=== PATIENT | male | born 1950 | race Caucasian/White ===

== ENCOUNTER → 2016-08-01 | Outpatient (CLI) | payer BC ==
[~2016-08-01] MED LIST: ALDACTONE PO; ALDACTONE25 MG PO; AUGMENTIN PO; AUGMENTIN400 MG PO; BABY ASA PO; BETAPACE80 MG PO; DIGOX0.25 MG PO; DOXYCYCLINE HY100 M1 PO; DOXYCYCLINE HY100 M3 PO; ELIQUIS5 MG PO; FLAGYL PO; FUROSEMIDE40 MG PO; HOLTER MONITOR; HYDROCHLOROTH12.5 M1 PO; LANOXIN125 MCG PO; LASIX PO; LASIX20 MG PO; LIDOPRIL XR 2.1 EACH; LISINOPRIL-HCTZ1 T19 PO; LISINOPRIL10 MG PO; LISINOPRIL5 MG PO; LORTAB 10-5001 EACH PO; LORTAB 7.5-5001 TAB PO; MEGACE ORA40 MG/ML S PO; MEGESTROL ACETA40 MG PO; METOPROLOL TAR25 MG PO; METOPROLOL TART25 MG PO; METRONIDAZOLE 045 GM EXT; METRONIDAZOLE 045 GM TOP; NO MEDICATIONS; ONDANSETRON HCL4 M1 PO; PANTOPRAZOLE SO40 MG PO; PERCOCET5/325 PO; PRADAXA150 MG PO; PRINIVIL5 MG PO; PROTONIX PO; SOTALOL AF80 M1 PO; TETRACYCLINE PO; ZOFRAN ODT4 M1 PO
--- NOTE | ~2016-08-01 | MR2 ---
[facility] A Service of [facility] & [facility] RADIOLOGY TEXT RESULTS PATIENT: AMBAR WILSON LOCATION: [facility] : 52 UNIT #: [id number] AGE: [address]: Indra Limon MD SEX: M ORDER DR: [id number] [facility] [address]. [place], [place] [address] [id number] MR#: [id number] Acc #: [id number] NAME: AMBAR WILSON : 1950 SEX: M STUDY DATE/TIME: 08/01/2016 22:06 UNIT: [facility] ROOM: STUDY DESCRIPTION: MR Abdomen WWo Cont Attending Physician: Indra Limon M.D. Ordering Physician: Indra Limon M.D. Primary Care Physician: Edgardo Hodgson M.D. MRI CENTER REPORT This report is preliminary unless electronic signature is present. EXAM MRI abdomen without and with IV gadolinium 08/01/2016 HISTORY Liver cancer since 02/12. Subsequent chemotherapy, currently ongoing. Underlying cirrhosis. MRI for restaging. COMPARISON MRI abdomen with and without contrast 06/13/2016. FINDINGS Again demonstrated are morphologic changes of cirrhosis. Again demonstrated is the ill-defined area of signal abnormality and hyperenhancement in the inferolateral right hepatic lobe in segment 6, best visualized on the delayed postcontrast scans, where it remains relatively hyper enhanced, and measures close to 5.5 cm x 4.6 cm in maximal AP and transverse dimensions. 2 rounded nodular areas of hyperenhancement are again noted in the medial right hepatic lobe in segment 6 measuring 10 mm, and in the inferior right hepatic tip measuring 11 mm. There is evidence of portal venous hypertension with upper abdominal and distal paraesophageal varices, similar to the prior exam. Partly visualized abdominal hernia near the level of the umbilicus with herniated fat measuring at least 12 cm in transverse diameter, extending through a 6 cm defect. Small amount of ascites. 14 mm gallstone. The spleen, pancreas, kidneys, and adrenal glands are unremarkable. Normal caliber abdominal aorta. Mildly enlarged portocaval lymph node measures 1.3 cm, minimally larger than on 06/13/2016 when it measured 11 mm. Lymph node interposed between the pancreatic head and IVC measures 1.4 cm, previously 1.1 cm. IMPRESSION 1. Stable size of the ill-defined irregularly marginated mass centered in the inferior right hepatic lobe in segment 6 which is most STS. [facility] A Service of [facility] & [facility] RADIOLOGY TEXT RESULTS PATIENT: AMBAR WILSON LOCATION: [facility] : 52 UNIT #: [id number] AGE: [address]: Indra Limon MD SEX: M ORDER DR: conspicuous on the delayed postcontrast scans with hyperenhancement noted. There are also 2 stable small enhancing nodules in the inferior right hepatic lobe measuring 10 mm and 11 mm. Given the persistent delayed hyperenhancement, cholangiocarcinoma and metastatic disease should be considered. No new or enlarging hepatic lesion. 2. Slight interval increase in size of mildly enlarged lymph nodes in the portocaval space and interposed between the pancreatic head and IVC as detailed above. 3. No new adenopathy. 4. Cirrhosis with evidence of portal venous hypertension. 5. 1.4 cm gallstone. 6. Partly visualized umbilical or periumbilical hernia containing fat appears similar to the prior exam. Dictated by... Tevin Kenyn M.D. THIS IS AN ELECTRONICALLY VERIFIED REPORT Tevin Kenny M.D. at 08/02/2016 10:58 PM Man TD: 08/02/2016 17:29 JOB #: [id number] MRI CENTER REPORT Page 1 of 1 COPY
[2016-08-01 22:51] LABS: POC - CREATININE 1.04 mg/dL (0.64-1.27); POC - GFR >60.0 mL/min (>60)
== END | disposition home or self-care (01) ==
LOC: CMRI 20:13
PROVIDERS: Internal Medicine Hematology & Oncology
DX: C78.7 Secondary malignant neoplasm of liver and intrahepatic bile duct (principal); K74.69 Other cirrhosis of liver; I42.0 Dilated cardiomyopathy; R53.0 Neoplastic (malignant) related fatigue; R16.0 Hepatomegaly, not elsewhere classified; K76.89 Other specified diseases of liver; R59.0 Localized enlarged lymph nodes; K74.60 Unspecified cirrhosis of liver; K76.6 Portal hypertension; K80.20 Calculus of gallbladder without cholecystitis without obstruction; K42.9 Umbilical hernia without obstruction or gangrene
CPT/HCPCS: 74183; 82565; A9577

== ENCOUNTER 2016-08-10 01:13 | Observation (INO) | payer BC ==
--- NOTE | ~2016-08-10 | HP ---
Unit #: [id number] #: [id number] Patient: AMBAR BARTON [id number] [facility]. [place] [id number] [facility]. [place], [place] [address] [id number] MR#: [id number] NAME: AMBAR BARTON. ROOM: 18951 Age: 66 Sex: M Admission Date: 08/10/2016 : 1950 Attending Physician: Anne Marie Munson M.D. Referring Physician: Edgardo Hodgson M.D. Primary Care Physician: Edgardo Hodgson M.D. HISTORY AND PHYSICAL HISTORY OF PRESENT ILLNESS This is a 66-year-old white male who has known nonischemic cardiomyopathy, had ejection fraction of 10% to 15% on a cardiac cath last November, and then in the office his echo in February showed an LVEF improved to 45%. He has permanent atrial fibrillation and is on Eliquis. He has stage IV liver cancer, is currently in between chemo treatments. He sees Dr. Limon. He is a reformed smoker and alcohol abuse. Patient came into the emergency room with increased weakness, shortness of breath and dizziness. Patient states that he just has been feeling very dizzy and weak. He has not had chemo for a few weeks, but there are plans to do a new round of chemo soon. According to the patient's , she noted the patient looking more short of air with minimal exertion. The patient says he feels occasionally his heart racing but not persistent. He denies any chest pain, pain in his neck, bilateral jaws, shoulders, arms or elbows. He has a little bit of lower extremity edema, but he says it is not unusual. He states he has had no nausea, vomiting or diarrhea. He denies any fever but has occasional chills. No abdominal pain or back pain. In the emergency room the patient's blood pressure was 119/97, heart rate 146 with respirations of 18, O2 sat 100% on room air, temperature 98.5. EKG showed atrial fibrillation with rapid ventricular response. Chest x-ray did not show any acute. His BNP is 161. Creatinine is 1.3. Initial cardiac enzymes are negative. His WBC is 15.1, platelets 95, hemoglobin 9.8. The patient was started on a Cardizem drip after 20 mg of IV Cardizem bolus. He was also given a bolus of normal saline. Patient will be admitted for further management. According to the patient, he admits to not taking his home medications for a couple days. He says sometimes he forgets. He is on Metoprolol and Lanoxin. PAST MEDICAL HISTORY 1. Nonischemic cardiomyopathy. In 11/2015 his LVEF was found to be 10% to 15% per cardiac cath by Dr. Samson here at [facility]. Also, the cardiac cath revealed normal coronaries. 2. Two-D echo performed in the office in 02/2016 showed LVEF of 45%, trace tricuspid regurgitation. 3. Permanent atrial fibrillation, on Eliquis. 4. Chronic systolic congestive heart failure. 5. Stage IV liver cancer. Chemotherapy. Follows Dr. Limon. 6. Diverticulosis and colon resection. Polyps removed. 7. Hypertension. 8. Reformed smoker. Unit #: [id number] #: [id number] Patient: AMBAR BARTON 9. Reformed alcohol abuse. PAST SURGICAL HISTORY 1. Polyps removed. 2. Colon resection. HOME MEDICATIONS 1. Lasix 40 mg p.o. b.i.d. 2. Lanoxin 0.25 mg p.o. daily. 3. Metoprolol 25 mg p.o. b.i.d. 4. Prinivil 5 mg p.o. daily. 5. Doxycycline 100 mg p.o. daily. 6. Pantoprazole 40 mg p.o. daily. 7. Megestrol 40 mg p.o. daily. 8. Aldactone 12.5 mg p.o. daily. 9. Ondansetron 4 mg p.o. q.6 hours p.r.n. nausea and vomiting. 10. Eliquis 5 mg p.o. b.i.d. ALLERGIES No known drug allergies. SOCIAL HISTORY The patient lives with his spouse. The patient is very sedentary due to his liver cancer. He quit smoking a few months back. He quit drinking in November of 2015. Drank several beers daily. No illicit drug abuse. FAMILY HISTORY His mother had coronary artery bypass graft. His father and siblings were in generally good health. REVIEW OF SYSTEMS CONSTITUTIONAL: Denies fevers. Has occasional chill. He has lost 30 pounds in the last 6 months. HEENT: Denies headache. Complained of dizziness. No visual or hearing changes. No lymphadenopathy, thyromegaly. No difficulty swallowing. CARDIOVASCULAR: Denies chest pain. Occasional palpitations. Some slightly increased lower extremity edema. PULMONARY: Increased shortness of breath with exertion. Denies paroxysmal nocturnal dyspnea or orthopnea. GI: Denies nausea, vomiting or diarrhea. NEUROLOGIC: No focal weakness. PHYSICAL EXAMINATION GENERAL: On exam, Mr. Barton is a 66-year-old white male, in no acute respiratory distress. He is awake, alert. NECK: Trachea midline. No thyromegaly or lymphadenopathy. Normal carotid upstrokes. No jugular venous distention. SKIN: Color is slightly jaundiced. EYES: Sclera is slightly jaundiced. HEART: S1, S2, irregular rate and rhythm. No clicks, murmurs or rubs. LUNGS: Slightly diminished; otherwise, clear. ABDOMEN: Slightly distended, soft, nontender. Positive bowel sounds present. EXTREMITIES: Pedal pulses are palpable. Trace pedal edema. DIAGNOSTIC STUDIES LABORATORY DIAGNOSTIC DATA: Glucose is 162, BUN 19, creatinine 1.3, eGFR 57.7, sodium 132, potassium 3.9, chloride 99, CO2 20, calcium 8.5, albumin Unit #: [id number] #: [id number] Patient: AMBAR BARTON 1.9, bili total 5, AST 73, ALT 26, alkaline phosphatase 152. BNP 161. WBC is 15.1, hemoglobin 9.8, hematocrit 30, platelets 95. Initial cardiac enzymes - CK-MB less than 1, troponin less than 0.05. IMAGING: Chest x-ray shows no active disease. CARDIOVASCULAR: EKG shows atrial fibrillation with ventricular rate 146 beats per minute, nonspecific ST-T wave abnormalities in, looks like, anterolateral leads. IMPRESSION 1. Weakness, dizziness. 2. Atrial fibrillation with rapid ventricular response. A fib is chronic. 3. Brief hypotension. 4. Dyspnea with exertion. 5. Nonischemic cardiomyopathy. LVEF 10% to 15% in 11/2015, improved to 45% on two-D echo 02/2016. 6. Normal coronaries per cardiac cath, 11/2015. 7. Chronic systolic congestive heart failure. 8. Stage IV liver cancer. Sees Dr. Limon. Has had chemo. Plans for future chemo. 9. History of hypertension. 10. Reformed smoker. 11. Reformed alcohol abuse. 12. Diverticulosis. PLAN 1. Patient will be admitted for management of A fib with RVR. Patient was started on a Cardizem drip. At rest his heart rate is in the 90s; with some movement, though, his heart rate increases to over 100 beats per minute. 2. Will discontinue the Metoprolol and start the patient on sotalol 40 mg p.o. b.i.d. After the first dose, will discontinue the Cardizem drip. 3. Continue the patient on Eliquis for chronic anticoagulation; however, the patient's hemoglobin is now 9.8 with hematocrit of 30. Looking back on prior labs back in December 2015, his hemoglobin was 15.3, and his hematocrit was 46.3, so we will obtain stool for occult blood. His anemia and his thrombocytopenia may be secondary to his chemotherapy and his cancer. 4. On exam, there are no signs or symptoms of unstable angina. Cardiac enzymes are negative. EKG does not show any acute ischemia. 5. The patient has no significant indication of acute systolic congestive heart failure. Continue the patient on his Lasix. He is on an DAVID inhibitor for his cardiomyopathy. Will monitor and also continue him on his Aldactone. 6. We will continue to follow his labs and check his LFTs again tomorrow. 7. The patient's blood pressure on Cardizem drip, after Cardizem bolus, did decrease down to 80 systolically, but he had 500 mL normal saline bolus, and his blood pressure on Cardizem at 5 mg an hour is in the one-teens to 120s systolic. 8. Further recommendations pending per Dr. Munson. Dictated by Candy Montenegro A.P.R.N. for Unit #: [id number] #: [id number] Patient: BARTONAMBAR Enamorado Ary Yeager/karen TD: 08/10/2016 11:56 JOB #: [id number] HISTORY AND PHYSICAL Page 1 of 1 X Candy Montenegro APRN HISTORY AND PHYSICAL
--- NOTE | ~2016-08-10 | EKG ---
PATIENT: AMBAR WILSON UNIT #: [id number] Ventricular Rate: 146 BPM Atrial Rate: 170 BPM QRS Duration: 88 ms Q-T Interval: 266 ms QTC Calculation(Bezet): 414 ms Calculated R [place]: 7 degrees Calculated T [place]: 137 degrees Diagnosis Line: Atrial fibrillation with rapid ventricular Diagnosis Line: response Diagnosis Line: Nonspecific ST and T wave abnormality Diagnosis Line: Abnormal ECG Diagnosis Line: When compared with ECG of 29-DEC-2015 05:38, Diagnosis Line: Atrial fibrillation has replaced Atrial flutter Diagnosis Line: ST no longer elevated in Inferior leads Diagnosis Line: ST now depressed in Lateral leads Diagnosis Line: T wave inversion no longer evident in Inferior Diagnosis Line: leads Diagnosis Line: Confirmed by DEANNA PAZ MD ([id number]) on 08/10/2016 Diagnosis Line: 8:09:45 PM INTERPRETING MD: JACKSON WHITTAKER
--- NOTE | ~2016-08-10 | EKG ---
PATIENT: AMBAR WILSON UNIT #: [id number] Ventricular Rate: 72 BPM Atrial Rate: 72 BPM P-R Interval: 168 ms QRS Duration: 92 ms Q-T Interval: 424 ms QTC Calculation(Bezet): 464 ms P [place]: 75 degrees Calculated R [place]: 66 degrees Calculated T [place]: 6 degrees Diagnosis Line: Sinus rhythm with Premature ventricular complexes Diagnosis Line: Low voltage QRS Diagnosis Line: Borderline ECG Diagnosis Line: When compared with ECG of 10-AUG-2016 00:45, Diagnosis Line: Sinus rhythm has replaced Atrial fibrillation Diagnosis Line: Vent. rate has decreased BY 74 BPM Diagnosis Line: Questionable change in QRS axis Diagnosis Line: ST no longer depressed in Lateral leads Diagnosis Line: T wave inversion no longer evident in Lateral Diagnosis Line: leads Diagnosis Line: Confirmed by DEANNA PAZ MD ([id number]) on 08/13/2016 Diagnosis Line: 7:13:22 AM INTERPRETING MD: JACKSON WHITTAKER
--- NOTE | ~2016-08-10 | CR72 ---
[facility] A Service of [facility] & [facility] RADIOLOGY TEXT RESULTS PATIENT: AMBAR WILSON LOCATION: [facility] : 52 UNIT #: [id number] AGE: [address]: Anne Marie Munson MD SEX: M ORDER DR: [id number] [facility] [address] [place], [place] [address] [id number] MR#: [id number] Acc #: [id number] NAME: AMBAR WILSON. : 1950 SEX: M STUDY DATE/TIME: 08/10/2016 01:15 UNIT: [facility] ROOM: STUDY DESCRIPTION: CR Chest Single View Portable Attending Physician: Stevan Aguillon M.D. Referring Physician: Edgardo Hodgson M.D. Ordering Physician: Adam Seaman M.D. Primary Care Physician: Edgardo Hodgson M.D. MEDICAL IMAGING REPORT This report is preliminary unless electronic signature is present EXAM Portable chest, 08/10/2016 at 01:15 INDICATION Shortness of air for the last 4 days. History of bile duct cancer status post chemotherapy. FINDINGS AP portable chest compared with chest CT from 04/14/2016. Cardiac and mediastinal contours are normal. The lungs are clear. No pneumothorax is seen. Right side Port-A-Cath tip is in the SVC. IMPRESSION No active disease. ADDENDUM There is a calcified pleural plaque along the right hemidiaphragm. Dictated by... Elliott Pizarro Jr., M.D. THIS IS AN ELECTRONICALLY VERIFIED REPORT Elliott Pizarro Jr., M.D. at 08/10/2016 6:25 AM LAVERN/dong TD: 08/10/2016 02:58 JOB #: [id number] MEDICAL IMAGING REPORT Page 1 of 1 COPY
--- NOTE | ~2016-08-10 | DS ---
Unit #: [id number] #: [id number] Patient: AMBAR WILSON [id number] [address] [place], [place] [address] [id number] I MR#: [id number] NAME: AMBAR WILSON. ROOM: [facility] Age: 66 Sex: M Admission Date: 08/10/2016 : 1950 Discharge Date: 08/12/2016 Attending Physician: Anne Marie Munson M.D. Referring Physician: Edgardo Hodgson M.D. Primary Care Physician: Edgrado Hodgson M.D. DISCHARGE SUMMARY DISCHARGE DIAGNOSES 1. Atrial fibrillation with rapid ventricular response. 2. History of paroxysmal atrial fibrillation, on Eliquis. 3. History of stage 4 liver carcinoma, is under treatment with Dr. Limon: His last chemo was about two weeks ago. 4. Nonischemic cardiomyopathy:. In 11/2015, his left ventricular ejection fraction was 10% to 15%. 2D echo in the office 02/2016 showed an left ventricular ejection fraction of 45% with a trace of tricuspid regurgitation. 2D echo 08/10/2016 showed LVEF of 55%. Mildly dilated left atrium. Mildly enlarged right atrial size, mildly dilated right ventricle. Mild mitral regurgitation and mild tricuspid regurgitation with elevated RVSP 43 mmHg. 5. Brief episode of hypotension: Has a history of hypertension. 6. Diverticulosis: Had colon resection and polypectomy. 7. Nonsmoker and reformed alcoholic use. DISCHARGE MEDICATIONS 1. Sotalol 40 mg p.o. twice daily - new medication. 2. Furosemide 20 mg p.o. twice daily and additional 20 mg with increased shortness of breath. 3. Eliquis 5 mg p.o. twice daily. 4. Zofran 4 mg p.o. every six hours p.r.n. 5. Megestrol 40 mg daily. 6. Decrease the dose of Lanoxin to 0.125 mg p.o. daily. 7. Stop the metoprolol. 8. Prinivil - stop. 9. Aldactone 12.5 mg p.o. daily. HOSPITAL COURSE This is a 66-year-old white male who is well known to Dr. Munson. She sees in the office and has been treated for cardiomyopathy. Has stage 4 liver cancer and has atrial fibrillation and is on Eliquis, who came in the emergency room after he had complaints of weakness, shortness of breath and dizziness. His last chemotherapy treatment was two weeks ago. The patient states that he has just been weak and dizzy and he has been taking his own medication and he has not taken any in the last several days. No specific reason. He denies any nausea, vomiting or diarrhea or abdominal or back pain. No fever or chills. When he was sent to the emergency room, his EKG showed atrial fibrillation with rapid ventricular response. His creatinine was 1.3. His hemoglobin was 9.8 but he does have some history of anemia and was started on Cardizem drip. After a bolus, his heart rate became better controlled and his blood pressure did have a drop where he went down to the 90s for just Unit #: [id number] #: [id number] Patient: AMBAR WILSON a brief episode. The Cardizem was stopped. Since he had not been taking his metoprolol, we started the patient on Zoloft 40 mg p.o. twice daily along with continuing him on his Lanoxin but decreased the dose down to 0.125 mg p.o. daily. Patient, after a couple doses of Zoloft, did have some episodes of sinus rhythm. Today, though, he does continue to be in sinus rhythm with occasionally short bursts of looks like it could be atrial fibrillation. The patient will be discharged home on Zoloft, Lanoxin for heart rate control and also on his Eliquis for chronic anticoagulation. The patient is going to be following back up with Dr. Limon this next week for further recommendations on the treatment for his liver cancer. Had a discussion with the about her helping him distribute and take his medication and monitor taking his medications. The patient did not have any signs or symptoms of unstable angina or acute congestive heart failure. The patient was discharged home today in stable condition. Did stop the lisinopril due to avoid any hypotension. His benign prostatic hypertrophy is running 100 to 110 systolic. PHYSICAL EXAMINATION ON DAY OF DISCHARGE VITAL SIGNS - blood pressure 101/54, heart rate 76, respirations 18, afebrile. HEART - S1, S2. Regular rate and rhythm. No clicks, murmur or rubs. LUNGS: Diminished, otherwise clear. ABDOMEN - soft, slightly distended. EXTREMITIES - pedal pulses are palpable. No pedal edema. LABORATORY/DIAGNOSTIC DATA Glucose is 65, BUN 16, creatinine 1.2, GFR 63.5, sodium 131, potassium 4.1, chloride 99, CO2 24, calcium 8.1, total protein 5.6, albumin 1.4, bili total 4.8, AST 61, ALT 23, alkaline phos is 116. BNP is 161. TSH is 3.55. WBC 13.0, hemoglobin 8.4, hematocrit 25.6 and platelets are 72. CK MB is 1.0, troponin less than 0.05. Chest x-ray shows no active disease. That was on admission. EKG this morning shows sinus rhythm with frequent premature atrial contraction, occasional premature ventricular contraction, ventricular rate 72 beats per minute. PLAN/INSTRUCTIONS 1. The patient will be discharged home. Instructed to follow up with Dr. Munson on September 22, at 10:45. 2. The patient will be following up with Dr. Limon next week, according to the . 3. Instructed to follow with Dr. Hodgson in one to two weeks. 4. The patient is on anticoagulation. Reinforced to report any signs or symptoms of any bleeding, changes in color of stools or any nosebleeds, etc. 5. Reinforced to the the importance of compliancy with medication and that new prescription for sotalol and decrease down the furosemide to 20 mg daily and also decrease the dose of Lanoxin. Unit #: [id number] #: [id number] Patient: AMBAR WILSON Dictated by... Manisha SantoyoPJohnRJohnNAry Gunter/sarah TD: 08/13/2016 08:00 JOB #: [id number] DISCHARGE SUMMARY Page 1 of 1 X Candy Montenegro APRN DISCHARGE SUMMARY
[~2016-08-10 01:13] MED LIST changes: -ALDACTONE25 MG PO; -BETAPACE80 MG PO; -ELIQUIS5 MG PO; -FUROSEMIDE40 MG PO; -LANOXIN125 MCG PO; -LASIX20 MG PO; -LIDOPRIL XR 2.1 EACH; -LISINOPRIL5 MG PO; -MEGACE ORA40 MG/ML S PO; -MEGESTROL ACETA40 MG PO; -METOPROLOL TART25 MG PO; -METRONIDAZOLE 045 GM EXT; -ONDANSETRON HCL4 M1 PO; -PANTOPRAZOLE SO40 MG PO; -PROTONIX PO; -SOTALOL AF80 M1 PO; -ZOFRAN ODT4 M1 PO
[2016-08-10] MEDS ORDERED: PANTOPRAZOLE SO40 MG PO (01:50)
[2016-08-10] MEDS ORDERED: ALDACTONE PO (01:51)
[2016-08-10] MEDS ORDERED: MEGESTROL ACETA40 MG PO (01:51)
[2016-08-10] MEDS ORDERED: ELIQUIS5 MG PO (01:54)
[2016-08-10] MEDS ORDERED: ONDANSETRON HCL4 M1 PO (01:54)
[2016-08-10 01:59] LABS: POC - TROPONIN <0.05 ng/mL (<=0.05)
[2016-08-10 02:00] LABS: BASOPHIL% 0.3 % (0-2.5); EOSINOPHIL% 0.1 % (0.0-7.0); HEMOGLOBIN 9.8 gm/dL (13.0-16.0); LYMPHOCYTE# 1.8 X10e3 (1.0-3.5); MEAN CORPUSCULAR HEMOGLOBIN 31.4 PG (28-34); MEAN CORPUSCULAR HGB CONC 32.7 g/dL (30-36); MEAN PLATELET VOLUME 10.7 FL (6.5-11.5); MONOCYTE% 13.3 % (3.0-12.0); NEUTROPHIL# 11.2 X10e3 (1.5-7.1); NEUTROPHIL% 74.3 % (40-75); RED BLOOD COUNT 3.13 X10e (3.90-5.60); RED CELL DISTRIBUTION WIDTH 16.1 % (11.0-15.5); WHITE BLOOD COUNT 15.1 X10e3 (4.0-10.5)
[2016-08-10 02:07] LABS: INR 1.4; PARTIAL THROMBOPLASTIN TIME 29.2 SECONDS (23.5-31.3); PROTHROMBIN TIME (PATIENT) 14.5 SECONDS (9.6-11.5)
[2016-08-10 02:11] LABS: PLATELET COUNT 95 X10e3 (140-420)
[2016-08-10 02:12] LABS: DIFF IND YES
[2016-08-10 02:14] LABS: ANISOCYTOSIS SL; PLATELET ESTIMATE DECREASED (NORMAL)
[2016-08-10 02:15] LABS: HYPOCHROMIA SL
[2016-08-10 02:24] LABS: ALBUMIN SERUM 1.9 g/dL (3.5-5.0); BILIRUBIN, DIRECT 2.4 mg/dL (0.0-0.2); BILIRUBIN,INDIRECT 2.6 mg/dL (0.0-0.9); BUN/CREATININE RATIO 14.61; CALCIUM SERUM 8.5 mg/dL (8.4-10.2); CREATININE SERUM 1.3 mg/dL (0.6-1.4); GLOM FILT RATE Estimated 57.7 mL/min (>60); POTASSIUM 3.9 mmol/L (3.5-5.1); PROTEIN TOTAL SERUM 6.9 g/dL (6.0-8.3)
[2016-08-11 06:25] LABS: HEMATOCRIT 25.6 % (38.0-50.0); HEMOGLOBIN 8.4 gm/dL (13.0-16.0); MEAN CELL VOLUME 95.6 FL (83-96); MEAN CORPUSCULAR HEMOGLOBIN 31.3 PG (28-34); MEAN CORPUSCULAR HGB CONC 32.8 g/dL (30-36); MEAN PLATELET VOLUME 10.4 FL (6.5-11.5); RED BLOOD COUNT 2.67 X10e (3.90-5.60); RED CELL DISTRIBUTION WIDTH 16.3 % (11.0-15.5)
[2016-08-11 06:40] LABS: ALBUMIN SERUM 1.5 g/dL (3.5-5.0); BILIRUBIN, DIRECT 2.2 mg/dL (0.0-0.2); BILIRUBIN,INDIRECT 2.6 mg/dL (0.0-0.9); BILIRUBIN,TOTAL 4.8 mg/dL (0.2-2.0); CALCIUM SERUM 7.9 mg/dL (8.4-10.2); CREATININE SERUM 1.2 mg/dL (0.6-1.4); GLOM FILT RATE Estimated 63.5 mL/min (>60); POTASSIUM 4.2 mmol/L (3.5-5.1); PROTEIN TOTAL SERUM 5.6 g/dL (6.0-8.3)
[2016-08-12 07:49] LABS: BUN/CREATININE RATIO 13.33; CALCIUM SERUM 8.1 mg/dL (8.4-10.2); CREATININE SERUM 1.2 mg/dL (0.6-1.4); GLOM FILT RATE Estimated 63.5 mL/min (>60); POTASSIUM 4.1 mmol/L (3.5-5.1)
[2016-08-12] MEDS ORDERED: LASIX20 MG PO (09:55)
[2016-08-12] MEDS ORDERED: BETAPACE80 MG PO ×2 (09:56→10:23)
[2016-08-12] MEDS ORDERED: LANOXIN125 MCG PO (10:04)
== END 2016-08-12 10:57 | disposition home or self-care (01) | DRG 309 ==
LOC: CED 01:13 → CEDOF 03:46 → C3A PCU 13:03
PROVIDERS: Emergency Medicine; Internal Medicine Cardiovascular Disease
DX: I48.2 Chronic atrial fibrillation (principal); Z79.01 Long term (current) use of anticoagulants; C22.0 Liver cell carcinoma; I51.7 Cardiomegaly; I08.1 Rheumatic disorders of both mitral and tricuspid valves; I42.9 Cardiomyopathy, unspecified; I95.9 Hypotension, unspecified; J92.9 Pleural plaque without asbestos; K57.30 Diverticulosis of large intestine without perforation or abscess without bleeding; I11.0 Hypertensive heart disease with heart failure; I50.22 Chronic systolic (congestive) heart failure; I49.1 Atrial premature depolarization; I49.3 Ventricular premature depolarization; N40.0 Benign prostatic hyperplasia without lower urinary tract symptoms; Z23 Encounter for immunization; Z79.899 Other long term (current) drug therapy; Z87.891 Personal history of nicotine dependence; Z86.010 Personal history of colon polyps; Z82.49 Family history of ischemic heart disease and other diseases of the circulatory system
CPT/HCPCS: 36415; 71010; 80048; 80076; 82274; 82553; 83880; 84443; 84484; 85025; 85027; 85610; 85730; 90732; 93005; 93306; 96374; 96376; 99291; G0009; G0378

== ENCOUNTER 2016-08-22 10:26 | Inpatient (IN) | payer BC ==
--- NOTE | ~2016-08-22 | A ---
[facility] Nutrition Therapy DATE: 08/23/16 Patient: AMBAR WILSON Physician: WILLIAMS Address: [address] [place] [address] Room/Bed: [address], Zip: [place] [address] Admit Date: 08/22/16 Date of : [birth year] Height: 5 9 Weight: 189 86 NUTRITIONAL ASSESSMENT: REASON: POOR INTAKE AND APPETITE REPORTED BY RN 66 yo male admitted for weakness, dehydration PMH: Stage IV liver cancer s/p chemo, cirrhosis d/t alcoholism, diverticular disease s/p colon resection, Afib, CHF, chronic anemia Anthropometrics: Ht: 69" Wt: 86 kg BMI: 28 Labs: Na+ 132 K+ 5.2 BUN 50 Creat 2.6 Ca++ 8.1 Alb 1.5 AST 58 NH3+ 66 GFR 25 BNP 233 Meds: Megace oral, D5%, zofran, NaCl I/O & Bowel function: 2533/275, last BM 08/22 Skin Integrity: Bruise BUE Open area right elbow Scar- abdomen Edema: Trace- BUE/BLE Estimated Nutrition Needs: Increased due to Dx and PMH Diet: Regular with Ensure TID Assessment: Chart reviewed, events noted. RN reports that the pt was started on Megace prior to admission due to poor intake/ appetite. Pt has stage IV liver cancer s/p chemotherapy. Pt consumed 100% of eggs and juice this AM per RN report. RD spoke with the pt's at bedside, who reports that pt's intake has decreased significantly over the past 2 weeks, now consuming bites of food and 1-2 Ensure supplements per day (previously consuming 3-4 Ensure). Pt's report's that he weighed 257# when he was diagnosed with cancer, and weighed 218# at his oncology visit one and a half weeks ago. This indicates ~39# or 15% weight loss. RD discussed the importance of adequate nutrition with the pt's , and suggested Ensure TID + small, frequent meals. Pt's voiced understand, agreeing that the pt may like to have smaller, more frequent meals. Please see recommendations below. Dx: Inadequate protein-energy intake RT stage IV liver cancer AEB 39# or 15% weight loss, poor/ decreased PO intake reported by family. [facility] Nutrition Therapy DATE: 08/23/16 Patient: AMBAR WILSON Physician: WILLIAMS Address: [address] [place] [address] Room/Bed: [address], Zip: [place] [address] Admit Date: 08/22/16 Date of : [birth year] Height: 5 9 Weight: 189 86 Intervention: 1. Regular diet 2. Ensure TID Monitoring, Evaluation and Goals: 1. Oral intake; tolerate >50-75% of meals 2. Labs; WNL: Electrolytes, BUN, creat, NH3+ 3. Weight; prevent weight loss, preserve lean body mass 4. Skin; prevent breakdown Recommendations: 1. Continue regular diet as tolerated, adding 6 small meals to promote increased nutrient intake. 2. Ensure TID (vanilla) for supplemental nutrition. 3. Continue megace oral to promote appetite stimulation. 4. Appreciate staff encouraging adequate intake of meals as needed. Pt is at moderate nutritional risk. RD will follow hospital course per protocol. Respectfully, CARMELO NAYLOR RD, LD Food and Nutritional Services [facility] cc: client file
--- NOTE | ~2016-08-22 | US77 ---
[facility] A Service of [facility] RADIOLOGY TEXT RESULTS PATIENT: AMBAR WILSON LOCATION: [address] : [birth year] UNIT #: [id number] AGE: [address]: Natalie Robin MD SEX: M ORDER DR: [id number] [facility]. [place], [place] [address] [id number] MR#: [id number] #: [id number] NAME: AMBAR WILSON. : 1950 SEX: M STUDY DATE/TIME: 08/22/2016 15:19 UNIT: [facility] ROOM: [facility] STUDY DESCRIPTION: US Kidney Bilateral Complete Attending Physician: Ana Strong M.D. Ordering Physician: Ana Strong M.D. Primary Care Physician: Edgardo Hodgson M.D. MEDICAL IMAGING REPORT This report is preliminary unless electronic signature is present EXAM Bilateral kidneys, 08/22/16 HISTORY Acute kidney insufficiency. EGFR 22.8, BUN 52, creatinine 2.8. Real time ultrasonography of the bilateral kidneys performed. Comparison to MRI abdomen 08/01/16. FINDINGS The right kidney measures approximately 9.82 cm in greatest length. The left kidney measures approximately 9.3 cm in greatest length. No hydrocephalous, nephrolithiasis or perinephric fluid collection. No cystic or solid mass lesions. The urinary bladder contains moderate volume of urine. No focal bladder wall abnormality is seen. IMPRESSION 1. Bilateral kidneys are morphologically normal with no evidence of obstruction or renal calculi. No cystic or solid mass lesions and no perinephric fluid collections. 2. Moderate volume of urine in urinary bladder. Visualized bladder wall unremarkable. Dictated by... Arthur Baptiste M.D. THIS IS AN ELECTRONICALLY VERIFIED REPORT Arthur Baptiste M.D. at 08/23/2016 10:49 PM Ashley TD: 08/22/2016 20:31 [facility] A Service [facility] RADIOLOGY TEXT RESULTS PATIENT: AMBAR WILSON LOCATION: [address] : [birth year] UNIT #: [id number] AGE: [address]: Natalie Robin MD SEX: M ORDER DR: JOB #: [id number] MEDICAL IMAGING REPORT Page 1 of 1 COPY
--- NOTE | ~2016-08-22 | DS ---
Unit #: [id number] #: [id number] Patient: AMBAR WILSON [id number] [address] [id number] I MR#: [id number] NAME: AMBAR WILSON. ROOM: [facility] Age: 66 Sex: M Admission Date: 08/22/2016 : 1950 Discharge Date: Attending Physician: Natalie Robin M.D. Primary Care Physician: Edgardo Hodgson M.D. DISCHARGE SUMMARY DISCHARGE DIAGNOSES 1. Stage IV cholangiocarcinoma. Patient received chemotherapy, most recently on Opdivo. 2. Enterococcus urinary tract infection. 3. Acute kidney injury with chronic kidney disease stage 3. 4. Chronic systolic heart failure. 5. Cirrhosis. 6. Paroxysmal atrial fibrillation. 7. Acute hypovolemic shock present on admission. 8. Anemia, most likely secondary to iron deficiency and chronic cancer and chemotherapy. 9. Hyperkalemia, secondary to acute kidney injury, resolved. 10. Severe protein malnutrition. 11. Digoxin toxicity. 12. Alcoholic cardiomyopathy. 13. History of diverticular disease, status post colon resection. 14. Hypertension. 15. Rosacea, patient maintained on doxycycline and metronidazole. 16. Mild hyponatremia. 17. Hypocalcemia. 18. Severe protein malnutrition. 19. Transaminitis, secondary to cirrhosis. ALLERGIES None. DISCHARGE MEDICATIONS 1. Zofran 4 mg one tablet p.o. q.6 p.r.n. nausea. 2. Florinef 0.1 mg p.o. b.i.d. 3. Eliquis 2.5 p.o. b.i.d. 4. Megace 400 p.o. daily. 5. Lidocaine cream apply topically. 6. Sotalol 40 mg p.o. daily. 7. Lasix 40 p.o. b.i.d. 8. Metronidazole 0.75 cream apply at bedtime. 9. Protonix 40 p.o. daily. 10. Doxycycline 100 mg p.o. daily. Hold while patient is on ampicillin. Resume after he has done the ampicillin course. 11. Ampicillin 500 mg p.o. b.i.d. for seven days. HOSPITALIZATION COURSE This is a 66 year old admitted on August 22 for generalized weakness. Stage IV cholangiocarcinoma: Patient is seen by Dr. Limon. Currently, Unit #: [id number] #: [id number] Patient: AMBAR WILSON no chemotherapy while he is in rehab. Patient will be re-evaluated by Dr. Limon after discharge from rehab if he is a candidate for chemotherapy or not. Acute kidney injury: Most likely secondary to lisinopril and Lasix. The patient is seen by renal. Lisinopril and spironolactone have been discontinued. Currently, creatinine is stable. He does have chronic kidney disease stage 4. Hyperkalemia: Secondary to acute kidney injury, on spironolactone which has been discontinued. Currently, potassium is stable. Enterococcus urinary tract infection: Patient will have ampicillin for seven days and I am going to discontinue the Hayward catheter. History of cirrhosis with generalized edema: Patient is on Lasix, continue with that. Immobility: The patient is seen by physical therapy. They recommend rehab. agrees for rehab. I am going to discharge to rehab. Severe protein malnutrition: Follow with a ball holder as an outpatient for high-protein diet. Chronic systolic heart failure: Stable. Lisinopril is on hold secondary to acute kidney injury and hyperkalemia. Acute hypovolemic shock: Present on admission. Patient's blood pressure pills were on hold. Patient received IV fluids and IV Levophed, currently resolved. Digoxin toxicity on admission: Digoxin has been discontinued. Currently, level normalizing. Alcohol abuse with alcohol cardiomyopathy: Currently, patient is not on any protocol. No DTs. Patient is a DNR. PROGNOSIS Long-term prognosis very poor. PLAN Discussed with . Patient will be discharged to rehab. Discussed with Dr. Limon. He is okay for the patient to be discharged to rehab. No chemotherapy for now. Patient needs BMP to be checked in one week time and follow with MD at rehab or PCP with results. Follow with Dr. Limon in two weeks' time. Discharge time taken is 40 minutes. Dictated by... Natalie Robin M.D. Unit #: [id number] #: [id number] Patient: AMBAR WILSON JONNY/anna TD: 08/29/2016 09:45 JOB #: [id number] DISCHARGE SUMMARY Page 1 of 1 X Natalie Robin MD DISCHARGE SUMMARY
--- NOTE | ~2016-08-22 | CR72 ---
[facility] A Service of [facility] RADIOLOGY TEXT RESULTS PATIENT: AMBAR WILSON LOCATION: [address] : [birth year] UNIT #: [id number] AGE: [address]: Ana Strong MD SEX: M ORDER DR: [id number] [facility] [address] [facility]. [place], [place] [address] [id number] MR#: [id number] Acc #: [id number] NAME: AMBAR WILSON : 1950 SEX: M STUDY DATE/TIME: 08/22/2016 10:12 UNIT: [facility] ROOM: STUDY DESCRIPTION: CR Chest Single View Portable Attending Physician: Cyndee Haines M.D. Ordering Physician: Cyndee Haines M.D. Primary Care Physician: Edgardo Hodgson M.D. MEDICAL IMAGING REPORT This report is preliminary unless electronic signature is present EXAM Chest portable, 08/22/2016 10:12 hours HISTORY 66-year-old man with complaint of weakness, confusion and shortness of air since yesterday. History of hypertension and CHF. COMPARISON 08/10/2016 FINDINGS Portable upright chest demonstrates stable right IJ port catheter with tip in lower SVC. The cardiac, mediastinal and hilar contours are normal. Lungs are clear of acute densities. There is no effusion or pneumothorax. IMPRESSION Stable right central venous port catheter with tip in SVC. The lungs are well expanded and clear. There is no effusion or pneumothorax. Calcified pleura at the dome of the right hemidiaphragm unchanged. Dictated by... Radha Escobar M.D. THIS IS AN ELECTRONICALLY VERIFIED REPORT Radha Escobar M.D. at 08/22/2016 7:01 PM LISETH/aung TD: 08/22/2016 11:01 JOB #: [id number] MEDICAL IMAGING REPORT Page 1 of 1 COPY
--- NOTE | ~2016-08-22 | HP ---
Unit #: [id number] #: [id number] Patient: AMBAR WILSON [id number] [facility]. [place], [place] [address] [id number] MR#: [id number] NAME: AMBAR WILSON ROOM: Age: 66 Sex: M Admission Date: 08/22/2016 : 1950 Attending Physician: Cyndee Haines M.D. Primary Care Physician: Edgardo Hodgson M.D. HISTORY AND PHYSICAL CHIEF COMPLAINT Weakness. HISTORY OF PRESENT ILLNESS The patient is a 66-year-old male with a past medical history of stage 4 liver cancer, paroxysmal atrial fibrillation, chronic anticoagulation, congestive heart failure, hypertension, diverticular disease, rosacea. He presented to the emergency department for evaluation of the above. Of note, the patient was hospitalized at [facility] 08/10/2016 through 08/12/2016 for atrial fibrillation with rapid ventricular response. Per the discharge summary, furosemide was increased to an additional 20 mg for increasing shortness of breath. Family states that he has been taking 40 mg b.i.d. Also, Lanoxin was decreased to 0.125 mg daily and metoprolol and Prinivil were discontinued. Per the family, the patient has still been taking those medications. The patient has had a three to four-day history of increasing generalized weakness. He started Opdivo last week and family states that he has been weak since that time. He has also had intermittent lightheadedness. He apparently fell on the evening prior to admission. It is unclear if he hit his head. There was no loss of consciousness. He has had decreased appetite, but no vomiting or diarrhea. He has had constipation, but his last bowel movement was today. Family states that he has had chills, but no documented fever. No cough or chest pain. They have noticed decreased urine output with the last void being on the evening prior to admission. In the emergency department initial pulse and blood pressure were 57 and 98/53 respectively. Laboratories notable for BUN and creatinine of 52 and 2.8 respectively. Digoxin level is 3.3. He was given 500 mL of normal saline in the emergency department. He is being admitted to [facility] for evaluation and further treatment. PAST MEDICAL HISTORY 1. Admission to [facility] 08/10/2016 through 08/12/2016 for atrial fibrillation with rapid ventricular response. It appears that there may be some discrepancy between the medications per the discharge summary and what the patient has actually been taking. Specifically, the patient has been taking furosemide 40 mg b.i.d. as well as metoprolol and Prinivil. 2. Paroxysmal atrial fibrillation on chronic anticoagulation with Eliquis. 3. Stage 4 liver cancer, followed by Dr. Limon. The patient's last chemotherapy was a couple of weeks ago. He just started Opdivo last Unit #: [id number] #: [id number] Patient: AMBAR WILSON. 4. Congestive heart failure. The patient's ejection fraction was 10%-15% in 11/2015. Per the discharge summary the patient had an echocardiogram 08/10/2016 that showed an ejection fraction of 55%. He is followed by Dr. Munson. 5. Diverticular disease, status post colon resection. 6. Hypertension. 7. Rosacea, maintained on doxycycline and metronidazole cream. PAST SURGICAL HISTORY 1. Port placement. 2. Colon resection for diverticular disease. 3. Polyp removal. SOCIAL HISTORY The patient quit smoking several months ago. He quit drinking in 11/2015. He has been walking with a walker recently. He lives with his . His code status is a do not resuscitate. FAMILY HISTORY Notable for his mother having coronary artery disease. ALLERGIES No known drug allergies. HOME MEDICATIONS 1. Zofran q.6 h. p.r.n. 2. Metoprolol 25 mg b.i.d. 3. Digoxin 0.125 mg daily. 4. Aldactone 25 mg 0.5 tablet daily. 5. Lisinopril 5 mg daily. 6. Furosemide 40 mg b.i.d. 7. Lidocaine/Prilocaine cream prior to treatment. 8. Doxycycline 100 mg daily. 9. Metronidazole cream at bedtime. 10. Eliquis 5 mg b.i.d. 11. Sotalol 40 mg b.i.d. 12. Megace 400 mg daily. 13. Protonix 40 mg daily. REVIEW OF SYSTEMS A complete review of systems was negative except as indicated in the history of present illness. PHYSICAL EXAMINATION GENERAL: The patient is a male who is chronically ill appearing. VITALS: Temperature 97.8, pulse 57, respiratory rate 11, blood pressure 98/53, oxygen saturation 99% on room air. HEENT: The sclerae are icteric. Mucous membranes are dry. NECK: Supple. Trachea midline. LUNGS: Relatively clear to auscultation bilaterally with no increased work of breathing. HEART: Regular rate and rhythm. ABDOMEN: Soft and nontender with bowel sounds present in all four quadrants. EXTREMITIES: No pedal edema. There is 1-2+ edema of the left upper extremity. Unit #: [id number] #: [id number] Patient: AMBAR WILSON NEUROLOGIC: The patient is oriented times three. He follows commands. PSYCHIATRIC: The patient has a flat affect. SKIN: Skin of examined areas is warm and dry. DIAGNOSTIC STUDIES IMAGING: Chest x-ray shows nothing acute. CT of the head shows nothing acute. LABORATORY: Troponin is less than 0.05. Lactic acid is 2.1, INR 1.6, digoxin level 3.3. CBC notable for hemoglobin 9.7, hematocrit 29.4, platelets 96. CMP notable for sodium 130, chloride 98, BUN 52, creatinine 2.8, calcium 8.3, AST 59, alkaline phosphatase 117, total bilirubin 3.9, albumin 1.4, phosphorus 4.2, CK 69, magnesium 2, BNP 233. CARDIOVASCULAR: EKG showed sinus bradycardia with a rate of 55 beats per minute. ASSESSMENT The patient is a 66-year-old male with 1. General weakness. 2. Acute kidney injury. The patient's creatinine was 1.2 on 08/12/2016 and it is 2.8 today. The highest it has been is 1.3 on 08/10/2016. He is on lisinopril as well as furosemide, which may be contributing. The dose of furosemide was recently increased. He has also had decreased p.o. intake. 3. Digoxin toxicity with a level of 3.3. 4. Stage 4 liver cancer. Currently receiving Opdivo, followed by Dr. Limon. 5. Chronic anemia. The patient's hemoglobin was 8.4 on 08/11/2016 and it is 9.7 today. 6. Chronic thrombocytopenia. The patient's platelet count is 96 today with 72 on 08/11/2016. 7. Paroxysmal atrial fibrillation. Followed by Dr. Attavar. 8. Chronic anticoagulation with Eliquis. 9. Congestive heart failure with the most recent ejection fraction being 55% per the discharge summary from echocardiogram 08/10/2016. 10. Hypertension. 11. Diverticular disease. 12. Left upper extremity edema. 13. Status post fall on the evening prior to admission. 14. Former smoker. 15. Former alcohol abuse. 16. Rosacea. PLAN 1. Admit for observation to intermediate level. 2. Healthy heart diet if passes bedside swallow. 3. Normal saline at 75 mL an hour. 4. Fall precautions. 5. Bedrest. 6. Physical therapy and occupational therapy to evaluate and treatment. 7. Urine sodium, creatinine and eosinophils. 8. Renal ultrasound for further evaluation of acute kidney injury. 9. Check urinalysis with culture and sensitivity. 10. Bladder scan. Check postvoid residual. 11. Strict ins and outs. 12. Hold nephrotoxic medications including Lasix and lisinopril. Unit #: [id number] #: [id number] Patient: AMBAR WILSON 13. Repeat digoxin level later this afternoon and in the morning. 14. Hold digoxin. 15. Consult Dr. Hartman regarding acute kidney injury and digoxin toxicity. 16. Serial cardiac enzymes. 17. Consult Dr. Limon regarding stage 4 liver cancer. 18. Check left upper lobe venous Doppler. 19. Blood cultures times two. 20. Monitor blood pressure closely. 21. Neurologic checks. 22. Repeat labs in the morning. 23. Additional workup and consultants based on the above. 24. Regarding code status, the patient is a do not resuscitate. Dictated by Ary Strong/gardenia TD: 08/22/2016 13:56 JOB #: [id number] HISTORY AND PHYSICAL Page 1 of 1 X Ana Strong MD X HISTORY AND PHYSICAL
--- NOTE | ~2016-08-22 | CO ---
Unit #: [id number] #: [id number] Patient: AMBAR BARTON [id number] [address] [place], [place] [address] [id number] I MR#: [id number] NAME: AMBAR BARTON. ROOM: [facility] Age: 66 Sex: M Admission Date: 08/22/2016 : 1950 Attending Physician: Natalie Robin M.D. Primary Care Physician: Edgardo Hodgson M.D. Consultation Date: 08/22/2016 CONSULTATION REPORT REASON FOR CONSULTATION Acute on chronic kidney disease. HISTORY OF PRESENT ILLNESS Mr. Barton is an unfortunate 66-year-old male with advanced liver cancer, on treatment with Opdivo, who was admitted from home for weakness and a fall at the home. No significant injury from the fall, but he did scrape his right arm and elbow. The patient was just here very recently for issues with atrial fibrillation and rapid ventricular response. We were asked to see for acute kidney injury. The patient's states that he has been dealing with a poor appetite for some time. He has also had some constipation as of late. She noted that he made a little urine yesterday despite his home doses of diuretics. Admission labs showed acute kidney injury as well as digoxin toxicity. The patient is very weak and lethargic this afternoon. He has not had any significant urinary complaints. The patient's states that he does not use any NSAIDs. There is no history of kidney stones. No rash is noted. The patient's blood pressure was low in the emergency room and he has been getting fluids. PAST MEDICAL HISTORY Significant for likely CKD stage 3, cirrhosis of the liver from alcohol, history of cardiomyopathy with the last EF was actually 55%, atrial fibrillation, liver cancer, diverticular disease, previously hypertension, and rosacea. PAST SURGICAL HISTORY Had a port placement, colon resection for diverticular disease, and a polyp removal. HOME MEDICATIONS Zofran p.r.n., metoprolol 25 mg b.i.d., digoxin 0.125 mg daily, Aldactone 25 mg half a tablet a day, lisinopril 5 mg a day, furosemide 40 mg b.i.d., doxycycline 100 mg a day, metronidazole cream at bedtime, Eliquis 5 mg b.i.d., Sotalol 40 mg b.i.d., Megace 400 mg a day, and Protonix 40 mg a day. ALLERGIES He has no known drug allergies. FAMILY HISTORY Significant for heart disease. The patient's stated she does not think anyone in his family has kidney problems or has needed dialysis. Unit #: [id number] #: [id number] Patient: AMBAR BARTON SOCIAL HISTORY The patient is a former smoker. He quit drinking in 11/2015 and was apparently a heavy drinker. No drug use that I am aware of. He is a do not resuscitate after confirming this with the . REVIEW OF SYSTEMS A complete 12-point review of systems was attempted, but was made difficult due to his general lethargy. Most of the history was obtained from the patient's . He has not been complaining about any headache, possibly some dizziness. No nosebleed or sore throat or earache. No chest pain or palpitations. No cough or hemoptysis. No nausea or vomiting. No bright red blood per rectum or melena. No dysuria or hematuria. No significant swelling. No rashes or itching. No flank pain. No chills, no night sweats per the . No bleeding issues. She thinks he has lost weight and again his appetite has been very poor. Unless otherwise indicated, the review of systems was negative. PHYSICAL EXAMINATION VITAL SIGNS: The patient is afebrile. Pulse 56, respiratory rate 17, blood pressure just 78/27. GENERAL: This is a 66-year-old male, lethargic, lying in bed, in no acute distress. HEENT: Head is atraumatic and normocephalic. Eyes show pale conjunctivae with some icterus. No nasal drainage or nosebleed. Oropharynx is very dry. NECK: Shows no rigidity or JVD. HEART: Bradycardic and regular. No significant murmur or rub appreciated. LUNGS: Clear anteriorly with no wheezing. Breathing is nonlabored. ABDOMEN: Soft with no distention. There are some bowel sounds present. No rebound, no guarding. EXTREMITIES: No lower extremity cyanosis or pitting edema. SKIN: Dry. I do note some wrinkling in his lower legs and feet. Skin is without rashes. MUSCULOSKELETAL: No joint effusions noted. NEUROLOGICAL: Noteworthy for generalized weakness. He does appear to be able to move all 4 extremities. PSYCHIATRIC: Appears depressed. DIAGNOSTIC STUDIES LABORATORY RESULTS: Ammonia level was 66. BNP was 233. Chemistry noteworthy for a sodium of 130, potassium 4.8, chloride 98, bicarb 24, glucose 84, BUN 52, creatinine 2.8. AST was high at 59, total bilirubin high at 3.9, CK level just 69. CBC showed a white count of 9, hemoglobin 9.7, platelet count 96. Digoxin level was 3.3. INR 1.6. Lactic acid 2.1. Troponin negative. Previous creatinine before this admission was 1.2 and 1.3 last month. Previous urines have demonstrated 1+ protein, but that was just one isolated one and that was 6 years ago. No blood at that time. IMAGING STUDIES: CT of the head was negative. Chest x-ray on admission showed the lungs were clear with no effusion. Previous imaging; the patient did have an MRI of the abdomen here on 08/01/2016. The kidneys were unremarkable at that time. It also showed cirrhosis with evidence of portal venous hypertension. ASSESSMENT AND PLAN 1. Acute on chronic kidney disease, stage 3. The patient does look like he has some underlying chronic kidney disease with his history of heart disease and cirrhosis. His acute kidney injury looks prerenal in nature Unit #: [id number] #: [id number] Patient: AMBAR BARTON as he has had poor intake while on diuretics. He is also on an DAVID inhibitor and Aldactone. All of those medications will be held and we will push fluids tonight. Certainly, cannot rule out toxicity from the Opdivo chemotherapy as it does have kidney toxicity as a complication. The patient is not a candidate for dialysis with his cancer and I did discuss this in his DNR status with his . 2. Hypotension. The patient is being moved to the ICU for supportive care and I will be increasing his IV fluids. 3. Cirrhosis due to alcoholism. 4. History of congestive heart failure. The patient looks compensated on exam. 5. History of atrial fibrillation. 6. Advanced liver cancer. 7. Digitoxicity. We will push fluids tonight and recheck a level in the morning. 8. I did confirm with the patient's that he is DNR as his prognosis is very poor. I would like to thank Dr. Strong for this consult and the opportunity to participate in evaluation and care of Mr. Barton. Dictated by... Reyes Hammond Jr., Ary DEAL/justina TD: 08/23/2016 03:39 JOB #: [id number] CONSULTATION REPORT Page 1 of 1 X Reyes Hammond MD X CONSULTATION REPORT
--- NOTE | ~2016-08-22 | EKG ---
PATIENT: AMBAR WILSON UNIT #: [id number] Ventricular Rate: 55 BPM Atrial Rate: 55 BPM P-R Interval: 188 ms QRS Duration: 90 ms Q-T Interval: 410 ms QTC Calculation(Bezet): 392 ms P Mimbres: 56 degrees Calculated R Mimbres: 18 degrees Calculated T Mimbres: -22 degrees Diagnosis Line: Sinus bradycardia Diagnosis Line: Low voltage QRS Diagnosis Line: Nonspecific T wave abnormality Diagnosis Line: Abnormal ECG Diagnosis Line: When compared with ECG of 12-AUG-2016 07:58, Diagnosis Line: Premature ventricular complexes are no longer Diagnosis Line: Present Diagnosis Line: Nonspecific T wave abnormality now evident in Diagnosis Line: Lateral leads Diagnosis Line: QT has shortened Diagnosis Line: Confirmed by VELVET DOYLE MD ([id number]) on Diagnosis Line: 08/22/2016 10:27:25 PM INTERPRETING MD: PHYLLIS
--- NOTE | ~2016-08-22 | US140 ---
[facility] A Service [facility] RADIOLOGY TEXT RESULTS PATIENT: AMBAR WILSON LOCATION: [place] [id number] : [birth year] UNIT #: [id number] AGE: [address]: Natalie Robin MD SEX: M ORDER DR: [id number] [facility] [address] [facility]. [place], [place] [address] [id number] I MR#: [id number] #: [id number] NAME: AMBAR WILSON. : 1950 SEX: M STUDY DATE/TIME: 08/22/2016 15:02 UNIT: [facility] ROOM: [facility] STUDY DESCRIPTION: UE Veins Unilat or Ltd Stdy Attending Physician: Ana Strong M.D. Ordering Physician: Ana Strong M.D. Primary Care Physician: Edgardo Hodgson M.D. MEDICAL IMAGING REPORT This report is preliminary unless electronic signature is present EXAM Left upper extremity venous ultrasound. HISTORY Swelling for 2 days. On blood thinner. FINDINGS Real-time ultrasonography of the left upper extremity venous structures was performed. Whiting-scale, color Doppler, and Doppler pulse wave interrogation were utilized. Left internal jugular vein, subclavian vein, axillary vein, brachial veins, basilic and cephalic veins are patent with normal compressibility where anatomically possible and normal color Doppler interrogation demonstrating [id number] flow. No evidence of deep or superficial vein thrombosis in left upper extremity at the time of this examination. IMPRESSION 1. Negative examination. No evidence of deep or superficial vein thrombosis in left upper extremity at time of this examination. Dictated by... Arthur Baptiste M.D. THIS IS AN ELECTRONICALLY VERIFIED REPORT Arthur Baptiste M.D. at 08/23/2016 10:49 PM Estela TD: 08/22/2016 19:22 JOB #: [id number] [facility] A Service [facility] RADIOLOGY TEXT RESULTS PATIENT: AMBAR WILSON LOCATION: [id number] : [birth year] UNIT #: [id number] AGE: [address]: Natalie Robin MD SEX: M ORDER DR: MEDICAL IMAGING REPORT Page 1 of 1 COPY
--- NOTE | ~2016-08-22 | CO ---
Unit #: [id number] #: [id number] Patient: JORGE BARTON [id number] [address] [place], [place] [address] [id number] I MR#: [id number] NAME: JORGE BARTON ROOM: [facility] Age: 66 Sex: M Admission Date: 08/22/2016 : 1950 Attending Physician: Natalie Robin M.D. Primary Care Physician: Edgardo Hodgson M.D. Consultation Date: 08/22/2016 CONSULTATION REPORT REASON FOR CONSULTATION Cholangiocarcinoma of the liver, please evaluate. HISTORY OF PRESENT ILLNESS Mr. Jorge Barton is a 66-year-old, well known to me, with a history of advanced cholangiocarcinoma of the liver, who underwent his first treatment of Opdivo last week on a compassionate basis. He is admitted thereafter with weakness and was found to have been dehydrated with acute kidney injury and toxic level of digoxin. According to his at bedside and the patient, Mr. Barton was doing reasonably well after previous hospitalization for atrial fibrillation with a rapid ventricular rate and after received Opdivo, he did not have any diarrhea or shortness of breathing, but thereafter became weaker with decreased appetite and dehydration leading to this admission. No fever or chills. He did fall at home without any history of hitting his head. In the emergency room, his blood pressure was 98/53, BUN was 52, creatinine was 2.8 with no significant change from previously. Digoxin level was 3.3. PAST MEDICAL HISTORY History of dilated cardiomyopathy with atrial fibrillation with rapid ventricular rate, history of cholangiocarcinoma of the liver, treated with chemotherapy and now most recently by Opdivo, history of congestive heart failure with EF in the most recent past of 55%. Other medical problems include diverticular disease, hypertension, and rosacea. PAST SURGICAL HISTORY Port placement, colon resection for diverticular disease and colonic polyps. FAMILY HISTORY Known for cardiac disease. SOCIAL HISTORY Quit smoking 6 months ago. He used to drink alcohol in excess, but quit in 11/2015. He is and lives with his . ALLERGIES He has no known medication allergies. MEDICATIONS At admission include Zofran, metoprolol, digoxin, Aldactone, lisinopril, furosemide, lidocaine, doxycycline, metronidazole cream, Eliquis, sotalol, Megace, and Protonix. Unit #: [id number] #: [id number] Patient: JORGE BARTON REVIEW OF SYSTEMS 14-point review of systems was taken. CONSTITUTIONAL: As discussed. EYES: Negative. EARS, NOSE, MOUTH, AND THROAT: Negative. CARDIOVASCULAR: No chest pain or palpitations. RESPIRATORY: Chronic shortness of breathing without any recent change. GASTROINTESTINAL: Some nausea, decreased appetite. GENITOURINARY: Decreased urine output. NEUROLOGIC: Occasional confusion. No seizures or headache. ALLERGIES: Negative. LYMPHATIC: Negative. SKIN: Negative. PSYCHIATRIC: Negative. PHYSICAL EXAMINATION GENERAL: He is a pleasant middle-aged man, who looks significantly older than his stated age. VITAL SIGNS: Temperature is 97.8, pulse 54, respiratory rate 14, blood pressure 94/46. HEENT: Pupils are equal and reactive well to light. He is mildly icteric. Mucous membranes are dry. NECK: Without adenopathy, JVD, or thyromegaly. CARDIOVASCULAR: First and second heart sounds are heard and regular without murmurs, gallops, or rubs. LUNGS: Chest expansion is symmetric. Bilateral equal air entry. Normal breath sounds. ABDOMEN: Slightly distended. Soft and nontender. Liver not palpable. EXTREMITIES: Show no edema. Foot pulses are poorly felt. NEUROLOGIC: He is awake, alert, and oriented x3 without any focal findings. He is tremulous, but does not have asterixis. PSYCHIATRIC: Negative. DIAGNOSTIC STUDIES LABORATORY RESULTS: Lactic acid 2.1. Pro time is 17.1. INR 1.6. PT 31.6. Digoxin level is 3.3. CBC; white count 9.1, hemoglobin 9.7, platelet count is 96,000. BMP shows a BUN of 52, creatinine is 2.8, eGFR is 22.8. Bilirubin was 2.9, direct is 2. Total protein is 5.7, albumin 1.4. IMAGING STUDIES: Chest x-ray, single view, shows stable right central venous catheter with the tip in the SVC with no infiltrate. ASSESSMENT Mr. Jorge Barton is a 66-year-old with a history of dilated cardiomyopathy, paroxysmal atrial fibrillation, on anticoagulation, Eliquis and intrahepatic cholangiocarcinoma status post treatment with Opdivo and has not had any diarrhea or shortness of breathing, but is admitted with decreased appetite, decreased p.o. intake, dehydration and acute kidney injury with elevated digoxin levels. Discussed with Mr. Barton and family. RECOMMENDATIONS 1. Cautious IV fluids with normal saline at 60 mL an hour. 2. Ammonia level. 3. Monitor labs. 4. Agree with do not resuscitate. Thank you for allowing me to participate in the care. Unit #: [id number] #: [id number] Patient: JORGE BARTON Dictated by... Ary Lopez/justina TD: 08/22/2016 23:41 JOB #: [id number] CONSULTATION REPORT Page 1 of 1 X Indra Limon MD X CONSULTATION REPORT
--- NOTE | ~2016-08-22 | US140 ---
[facility] A Service of [facility] RADIOLOGY TEXT RESULTS PATIENT: AMBAR WILSON LOCATION: [facility] 339- : 52 UNIT #: [id number] AGE: [address]: Natalie Robin MD SEX: M ORDER DR: [id number] [facility] [address] [facility]. [place], [place] [address] [id number] I MR#: [id number] Acc #: [id number] NAME: AMBAR WILSON. : 1950 SEX: M STUDY DATE/TIME: 08/25/2016 17:19 UNIT: [address] ROOM: [facility] STUDY DESCRIPTION: UE Veins Unilat or Ltd Stdy Attending Physician: Natalie Robin M.D. Ordering Physician: Natalie Robin M.D. Primary Care Physician: Edgardo Hodgson M.D. MEDICAL IMAGING REPORT This report is preliminary unless electronic signature is present EXAM Left upper extremity venous ultrasound. HISTORY Left upper extremity swelling for 1 day. TECHNIQUE Venous ultrasound examination of the left upper extremity was performed using grayscale, spectral Doppler and color flow Doppler imaging. FINDINGS The examination is negative. There is no evidence of deep venous thrombus within the left internal jugular vein, subclavian vein, axillary vein or brachial veins. No superficial venous thrombus is seen within the cephalic or basilic veins. IMPRESSION Negative examination. No evidence of left upper extremity venous thrombosis. Dictated by... Tevin Kenny M.D. THIS IS AN ELECTRONICALLY VERIFIED REPORT Tevin Kenny M.D. at 08/25/2016 11:18 PM RIANA/beto TD: 08/25/2016 22:06 JOB #: [id number] [facility] A Service of [facility] RADIOLOGY TEXT RESULTS PATIENT: AMBAR WILSON LOCATION: [facility] 339- : 52 UNIT #: [id number] AGE: [address]: Natalie Robin MD SEX: M ORDER DR: MEDICAL IMAGING REPORT Page 1 of 1 COPY
--- NOTE | ~2016-08-22 | CT71 ---
[facility] A Service of [facility] RADIOLOGY TEXT RESULTS PATIENT: AMBAR WILSON LOCATION: [facility] : 52 UNIT #: [id number] AGE: [address]: Cyndee Haines MD SEX: M ORDER DR: [id number] [facility] [address] [facility]. [place], [place] [address] [id number] MR#: [id number] Acc #: [id number] NAME: AMBAR WILSON : 1950 SEX: M STUDY DATE/TIME: 08/22/2016 10:48 UNIT: [facility] ROOM: STUDY DESCRIPTION: CT Head Wo Contrast Attending Physician: Cyndee Haines M.D. Ordering Physician: Cyndee Haines M.D. Primary Care Physician: Edgardo Hodgson M.D. MEDICAL IMAGING REPORT This report is preliminary unless electronic signature is present EXAM CT head without contrast INDICATION Fall. Headache. Weakness. Hypotension. TECHNIQUE CT head without contrast. This CT examination was performed with one or more of the following radiation dose reduction techniques: automatic exposure control, adjustment of mA and/or kV according to patient size, and iterative reconstruction. COMPARISON None available. FINDINGS Axial noncontrast images were obtained from the skull base to the vertex. Ventricular size and configuration are normal. There is no evidence of acute infarct or hemorrhage. There are no extra-axial fluid collections. No mass lesion or mass effect is seen. There are no skull fractures. IMPRESSION Normal noncontrast head CT. Dictated by... Yosvany Galindo M.D. THIS IS AN ELECTRONICALLY VERIFIED REPORT Yosvany Galindo M.D. at 08/22/2016 2:48 PM VIRGIL/shane TD: 08/22/2016 12:19 [facility] A Service of [facility] RADIOLOGY TEXT RESULTS PATIENT: AMBAR WILSON LOCATION: [facility] : 54 UNIT #: [id number] AGE: [address]: Cyndee Haines MD SEX: M ORDER DR: JOB #: [id number] MEDICAL IMAGING REPORT Page 1 of 1 COPY
[~2016-08-22 10:26] MED LIST changes: +BETAPACE80 MG PO; +ELIQUIS5 MG PO; +LANOXIN125 MCG PO; +LASIX20 MG PO; +MEGESTROL ACETA40 MG PO; +ONDANSETRON HCL4 M1 PO; +PANTOPRAZOLE SO40 MG PO
[2016-08-22] MEDS ORDERED: ZOFRAN ODT4 M1 PO (10:30)
[2016-08-22] MEDS ORDERED: METOPROLOL TART25 MG PO (10:31)
[2016-08-22] MEDS ORDERED: DIGOX0.25 MG PO (10:31)
[2016-08-22] MEDS ORDERED: LISINOPRIL5 MG PO (10:32)
[2016-08-22] MEDS ORDERED: FUROSEMIDE40 MG PO (10:32)
[2016-08-22] MEDS ORDERED: ALDACTONE25 MG PO (10:32)
[2016-08-22] MEDS ORDERED: LIDOPRIL XR 2.1 EACH (10:33)
[2016-08-22 10:35] LABS: BASOPHIL# 0.1 X10e3 (0-0.3); BASOPHIL% 0.8 % (0-2.5); EOSINOPHIL# 0.2 X10e3 (0-0.7); EOSINOPHIL% 1.7 % (0.0-7.0); HEMATOCRIT 29.4 % (38.0-50.0); HEMOGLOBIN 9.7 gm/dL (13.0-16.0); LYMPHOCYTE# 2.1 X10e3 (1.0-3.5); LYMPHOCYTE% 23.5 % (17.0-45.0); MEAN CELL VOLUME 94.1 FL (83-96); MEAN CORPUSCULAR HEMOGLOBIN 31.1 PG (28-34); MEAN CORPUSCULAR HGB CONC 33.1 g/dL (30-36); MEAN PLATELET VOLUME 10.3 FL (6.5-11.5); MONOCYTE# 1.3 X10e3 (0-1.0); MONOCYTE% 14.4 % (3.0-12.0); NEUTROPHIL# 5.5 X10e3 (1.5-7.1); NEUTROPHIL% 59.6 % (40-75); RED BLOOD COUNT 3.13 X10e (3.90-5.60); RED CELL DISTRIBUTION WIDTH 16.8 % (11.0-15.5); WHITE BLOOD COUNT 9.1 X10e3 (4.0-10.5)
[2016-08-22] MEDS ORDERED: DOXYCYCLINE HY100 M3 PO (10:35)
[2016-08-22] MEDS ORDERED: METRONIDAZOLE 045 GM EXT (10:36)
[2016-08-22 10:37] LABS: POC - CKMB <1.0 ng/mL (0.0-7.9); POC - TROPONIN <0.05 ng/mL (<=0.05)
[2016-08-22] MEDS ORDERED: SOTALOL AF80 M1 PO (10:37)
[2016-08-22] MEDS ORDERED: ELIQUIS5 MG PO (10:37)
[2016-08-22] MEDS ORDERED: MEGACE ORA40 MG/ML S PO (10:38)
[2016-08-22] MEDS ORDERED: PROTONIX PO (10:39)
[2016-08-22 10:49] LABS: INR 1.6; PARTIAL THROMBOPLASTIN TIME 31.6 SECONDS (23.5-31.3); PROTHROMBIN TIME (PATIENT) 17.1 SECONDS (9.6-11.5)
[2016-08-22 11:02] LABS: DIFF IND YES; PLATELET COUNT 96 X10e3 (140-420)
[2016-08-22 11:14] LABS: ANISOCYTOSIS SL; PLATELET ESTIMATE DECREASED (NORMAL); TARGET CELLS SL
[2016-08-22 11:15] LABS: OVALOCYTES PRESENT
[2016-08-22 11:16] LABS: ALBUMIN SERUM 1.4 g/dL (3.5-5.0); BILIRUBIN,INDIRECT 1.9 mg/dL (0.0-0.9); BILIRUBIN,TOTAL 3.9 mg/dL (0.2-2.0); BUN/CREATININE RATIO 18.57; CALCIUM SERUM 8.3 mg/dL (8.4-10.2); CREATININE SERUM 2.8 mg/dL (0.6-1.4); GLOM FILT RATE Estimated 22.8 mL/min (>60); PHOSPHOROUS 4.2 mg/dL (2.5-4.6); POTASSIUM 4.8 mmol/L (3.5-5.1); PROTEIN TOTAL SERUM 5.7 g/dL (6.0-8.3); SMUDGE CELLS 14 /100
[2016-08-22 12:09] LABS: POC - CKMB <1.0 ng/mL (0.0-7.9); POC - TROPONIN <0.05 ng/mL (<=0.05)
[2016-08-22 18:46] LABS: CK TOTAL 44 IU/L (36-174)
[2016-08-22 20:34] LABS: URINE APPEARANCE CLEAR; URINE BLOOD 1+ (NEG); URINE COLOR DK YELLOW; URINE GLUCOSE NEG (NEG); URINE KETONE TRACE (NEG); URINE LEUKOCYTE ESTERASE TRACE (NEG); URINE NITRATE NEG (NEG); URINE PROTEIN NEG (NEG); URINE SPECIFIC GRAVITY 1.016 (1.003-1.035)
[2016-08-22 20:37] LABS: URINE BACTERIA AUWI NEG (NEGATIVE); URINE SQUAMOUS EPITHELIAL CELL NONE SEEN /[HPF]
[2016-08-22 20:40] LABS: URINE BILIRUBIN NEG (NEG)
[2016-08-22 21:06] LABS: CREATININE,RANDOM URINE 219 mg/dL; SODIUM URINE RANDOM 13 mmol/L
[2016-08-22 23:32] LABS: CK TOTAL 42 IU/L (36-174)
[2016-08-23 05:30] LABS: BASOPHIL# 0.1 X10e3 (0-0.3); BASOPHIL% 0.6 % (0-2.5); EOSINOPHIL# 0.2 X10e3 (0-0.7); EOSINOPHIL% 1.4 % (0.0-7.0); HEMATOCRIT 30.9 % (38.0-50.0); HEMOGLOBIN 9.9 gm/dL (13.0-16.0); LYMPHOCYTE# 2.2 X10e3 (1.0-3.5); LYMPHOCYTE% 19.5 % (17.0-45.0); MEAN CELL VOLUME 95.6 FL (83-96); MEAN CORPUSCULAR HEMOGLOBIN 30.6 PG (28-34); MEAN PLATELET VOLUME 10.9 FL (6.5-11.5); MONOCYTE# 1.3 X10e3 (0-1.0); MONOCYTE% 11.9 % (3.0-12.0); NEUTROPHIL# 7.4 X10e3 (1.5-7.1); NEUTROPHIL% 66.6 % (40-75); PLATELET COUNT 102 X10e3 (140-420); RED BLOOD COUNT 3.23 X10e (3.90-5.60); RED CELL DISTRIBUTION WIDTH 17.1 % (11.0-15.5); WHITE BLOOD COUNT 11.1 X10e3 (4.0-10.5)
[2016-08-23 05:33] LABS: DIFF IND NO
[2016-08-23 05:34] LABS: INR 1.6; PROTHROMBIN TIME (PATIENT) 17.4 SECONDS (9.6-11.5)
[2016-08-23 06:05] LABS: ALBUMIN SERUM 1.5 g/dL (3.5-5.0); BILIRUBIN,TOTAL 4.4 mg/dL (0.2-2.0); BUN/CREATININE RATIO 19.23; CALCIUM SERUM 8.1 mg/dL (8.4-10.2); CREATININE SERUM 2.6 mg/dL (0.6-1.4); POTASSIUM 5.2 mmol/L (3.5-5.1); PROTEIN TOTAL SERUM 5.9 g/dL (6.0-8.3)
[2016-08-23 06:08] LABS: DIGOXIN (LANOXIN) 3.2 ng/ml (1.0-2.0)
[2016-08-23 12:55] LABS: FREE THYROXIN (T4) 1.13 ng/dL (0.58-1.64)
[2016-08-23 14:19] LABS: THYROID STIMULATING HORMONE 2.89 uIU/ml (0.34-5.60)
[2016-08-24 06:58] LABS: ALBUMIN SERUM 1.4 g/dL (3.5-5.0); BILIRUBIN,TOTAL 3.8 mg/dL (0.2-2.0); CALCIUM SERUM 7.8 mg/dL (8.4-10.2); GLOM FILT RATE Estimated 34.3 mL/min (>60); POTASSIUM 4.8 mmol/L (3.5-5.1); PROTEIN TOTAL SERUM 5.3 g/dL (6.0-8.3)
[2016-08-25 05:22] LABS: BASOPHIL# 0.1 X10e3 (0-0.3); BASOPHIL% 1.1 % (0-2.5); EOSINOPHIL# 0.3 X10e3 (0-0.7); HEMATOCRIT 26.6 % (38.0-50.0); HEMOGLOBIN 8.8 gm/dL (13.0-16.0); LYMPHOCYTE# 1.9 X10e3 (1.0-3.5); LYMPHOCYTE% 20.9 % (17.0-45.0); MEAN CELL VOLUME 95.5 FL (83-96); MEAN CORPUSCULAR HEMOGLOBIN 31.4 PG (28-34); MEAN CORPUSCULAR HGB CONC 32.9 g/dL (30-36); MEAN PLATELET VOLUME 9.8 FL (6.5-11.5); MONOCYTE# 1.6 X10e3 (0-1.0); MONOCYTE% 17.8 % (3.0-12.0); NEUTROPHIL# 5.2 X10e3 (1.5-7.1); NEUTROPHIL% 57.2 % (40-75); RED BLOOD COUNT 2.79 X10e (3.90-5.60); RED CELL DISTRIBUTION WIDTH 16.9 % (11.0-15.5); WHITE BLOOD COUNT 9.1 X10e3 (4.0-10.5)
[2016-08-25 05:46] LABS: DIFF IND YES; PLATELET COUNT 85 X10e3 (140-420)
[2016-08-25 05:48] LABS: ANISOCYTOSIS SL; PLATELET ESTIMATE DECREASED (NORMAL)
[2016-08-25 06:45] LABS: BUN/CREATININE RATIO 23.33; CALCIUM SERUM 7.7 mg/dL (8.4-10.2); CREATININE SERUM 1.8 mg/dL (0.6-1.4); DIGOXIN (LANOXIN) 1.5 ng/ml (1.0-2.0); GLOM FILT RATE Estimated 38.9 mL/min (>60); POTASSIUM 4.5 mmol/L (3.5-5.1)
[2016-08-26 05:20] LABS: BASOPHIL# 0.1 X10e3 (0-0.3); BASOPHIL% 0.8 % (0-2.5); EOSINOPHIL# 0.2 X10e3 (0-0.7); EOSINOPHIL% 1.7 % (0.0-7.0); HEMATOCRIT 27.9 % (38.0-50.0); HEMOGLOBIN 9.2 gm/dL (13.0-16.0); LYMPHOCYTE# 2.1 X10e3 (1.0-3.5); LYMPHOCYTE% 20.1 % (17.0-45.0); MEAN CORPUSCULAR HEMOGLOBIN 31.2 PG (28-34); MEAN CORPUSCULAR HGB CONC 32.9 g/dL (30-36); MEAN PLATELET VOLUME 10.3 FL (6.5-11.5); MONOCYTE# 1.7 X10e3 (0-1.0); MONOCYTE% 16.3 % (3.0-12.0); NEUTROPHIL# 6.5 X10e3 (1.5-7.1); NEUTROPHIL% 61.1 % (40-75); RED BLOOD COUNT 2.94 X10e (3.90-5.60); RED CELL DISTRIBUTION WIDTH 16.7 % (11.0-15.5); WHITE BLOOD COUNT 10.6 X10e3 (4.0-10.5)
[2016-08-26 06:01] LABS: PLATELET COUNT 87 X10e3 (140-420)
[2016-08-26 06:02] LABS: DIFF IND NO
[2016-08-26 06:24] LABS: ALBUMIN SERUM 1.4 g/dL (3.5-5.0); BILIRUBIN,TOTAL 3.2 mg/dL (0.2-2.0); CALCIUM SERUM 7.8 mg/dL (8.4-10.2); CREATININE SERUM 1.4 mg/dL (0.6-1.4); GLOM FILT RATE Estimated 52.7 mL/min (>60); POTASSIUM 4.8 mmol/L (3.5-5.1); PROTEIN TOTAL SERUM 5.3 g/dL (6.0-8.3)
[2016-08-26 11:28] LABS: URINE APPEARANCE CLOUDY; URINE BILIRUBIN NEG (NEG); URINE BLOOD 4+ (NEG); URINE COLOR BROWN; URINE GLUCOSE NORM (NORM); URINE KETONE NEG (NEG); URINE LEUKOCYTE ESTERASE 1+ (NEG); URINE NITRATE NEG (NEG); URINE PH 6.5 (5-8); URINE PROTEIN 2+ (NEG); URINE SPECIFIC GRAVITY 1.015 (1.003-1.035); URINE UROBILINOGEN NORM (NORM)
[2016-08-26 11:40] LABS: URBCS1 AUWI INNUM /[HPF] (0-2)
[2016-08-27 07:30] LABS: HEMATOCRIT 27.7 % (38.0-50.0); MEAN CELL VOLUME 94.8 FL (83-96); MEAN CORPUSCULAR HGB CONC 32.7 g/dL (30-36); MEAN PLATELET VOLUME 10.3 FL (6.5-11.5); RED BLOOD COUNT 2.92 X10e (3.90-5.60); RED CELL DISTRIBUTION WIDTH 16.8 % (11.0-15.5); WHITE BLOOD COUNT 14.2 X10e3 (4.0-10.5)
[2016-08-27 07:43] LABS: ALBUMIN SERUM 1.4 g/dL (3.5-5.0); BILIRUBIN,TOTAL 3.6 mg/dL (0.2-2.0); BUN/CREATININE RATIO 29.23; CALCIUM SERUM 7.9 mg/dL (8.4-10.2); CREATININE SERUM 1.3 mg/dL (0.6-1.4); GLOM FILT RATE Estimated 57.7 mL/min (>60); MAGNESIUM 1.9 mg/dL (1.6-3.0); PHOSPHOROUS 2.9 mg/dL (2.5-4.6); PROTEIN TOTAL SERUM 5.3 g/dL (6.0-8.3)
[2016-08-28 07:16] LABS: HEMATOCRIT 28.4 % (38.0-50.0); HEMOGLOBIN 9.3 gm/dL (13.0-16.0); MEAN CELL VOLUME 95.4 FL (83-96); MEAN CORPUSCULAR HEMOGLOBIN 31.1 PG (28-34); MEAN CORPUSCULAR HGB CONC 32.6 g/dL (30-36); MEAN PLATELET VOLUME 10.6 FL (6.5-11.5); RED BLOOD COUNT 2.98 X10e (3.90-5.60); WHITE BLOOD COUNT 12.4 X10e3 (4.0-10.5)
[2016-08-28 07:47] LABS: BUN/CREATININE RATIO 27.69; CREATININE SERUM 1.3 mg/dL (0.6-1.4); GLOM FILT RATE Estimated 57.7 mL/min (>60)
[2016-08-29 05:22] LABS: HEMATOCRIT 27.2 % (38.0-50.0); MEAN CORPUSCULAR HEMOGLOBIN 31.5 PG (28-34); MEAN CORPUSCULAR HGB CONC 33.2 g/dL (30-36); MEAN PLATELET VOLUME 10.4 FL (6.5-11.5); RED BLOOD COUNT 2.86 X10e (3.90-5.60); RED CELL DISTRIBUTION WIDTH 17.4 % (11.0-15.5); WHITE BLOOD COUNT 12.2 X10e3 (4.0-10.5)
[2016-08-29 06:16] LABS: BUN/CREATININE RATIO 25.71; CALCIUM SERUM 7.9 mg/dL (8.4-10.2); CREATININE SERUM 1.4 mg/dL (0.6-1.4); GLOM FILT RATE Estimated 52.7 mL/min (>60); POTASSIUM 4.9 mmol/L (3.5-5.1)
== END 2016-08-29 17:09 | DRG 682 ==
LOC: CED 10:26 → CEDOF 12:50 → C5B 17:25 → CICCU3 18:58 → C3A PCU 08-25 18:20
PROVIDERS: Emergency Medicine; Family Medicine; Internal Medicine; Internal Medicine Nephrology
DX: N17.9 Acute kidney failure, unspecified (principal); R57.1 Hypovolemic shock; E43 Unspecified severe protein-calorie malnutrition; C22.1 Intrahepatic bile duct carcinoma; I42.6 Alcoholic cardiomyopathy; E87.2 Acidosis; I13.0 Hypertensive heart and chronic kidney disease with heart failure and stage 1 through stage 4 chronic kidney disease, or unspecified chronic kidney disease; I50.22 Chronic systolic (congestive) heart failure; E83.51 Hypocalcemia; N39.0 Urinary tract infection, site not specified; E87.1 Hypo-osmolality and hyponatremia; B95.2 Enterococcus as the cause of diseases classified elsewhere; N18.3 Chronic kidney disease, stage 3 (moderate); K74.60 Unspecified cirrhosis of liver; T46.0X5A Adverse effect of cardiac-stimulant glycosides and drugs of similar action, initial encounter; F10.10 Alcohol abuse, uncomplicated; L71.9 Rosacea, unspecified; R74.0 Nonspecific elevation of levels of transaminase and lactic acid dehydrogenase [LDH]; E87.5 Hyperkalemia; Z66 Do not resuscitate
CPT/HCPCS: 36415; 70450; 71010; 76770; 80048; 80053; 80076; 80162; 81003; 82140; 82533; 82550; 82553; 82570; 83605; 83735; 83880; 84100; 84300; 84439; 84443; 84484; 85025; 85027; 85610; 85730; 87040; 87086; 87088; 87186; 89190; 90732; 93005; 93971; 97110; 97116; 97163; 97167; 97530; 97535; 99285; G0009; G8978-GP; G8979-GP; G8987-GO; G8988-GO; G8989-GO; J1250; J2270; J2405

== ENCOUNTER 2016-09-02 13:43 | Inpatient (IN) | payer BC ==
--- NOTE | ~2016-09-02 | CT71 ---
[facility] A Service of [facility] RADIOLOGY TEXT RESULTS PATIENT: AMBAR WILSON LOCATION: C2A 227-01 : 54 UNIT #: [id number] AGE: [address]: Hola Macedo MD SEX: M ORDER DR: [id number] [facility] [address] [facility]. [place], [place] [address] [id number] I MR#: [id number] Acc #: [id number] NAME: AMBAR WILSON. : 1950 SEX: M STUDY DATE/TIME: 09/02/2016 12:31 UNIT: CEDOF ROOM: 53815 STUDY DESCRIPTION: CT Head Wo Contrast Attending Physician: Hola Macedo M.D. Ordering Physician: Noemy Soto M.D. Primary Care Physician: Edgardo Hodgson M.D. MEDICAL IMAGING REPORT This report is preliminary unless electronic signature is present EXAM CT head without contrast 09/02/2016. HISTORY 66-year-old male with altered mental status for 3 days. History of lung cancer. COMPARISON CT head 08/22/2016. TECHNIQUE Routine unenhanced axial images performed through the brain. This CT exam was performed with one or more of the following radiation dose reduction techniques: automatic exposure control, adjustment of mA and/or kV according to patient size, and iterative reconstruction. FINDINGS Examination is limited by motion artifact. Allowing for this, no evidence of hemorrhage, acute infarction, mass, mass lesion, or abnormal extraaxial fluid collection. No midline shift or focal mass effect. Ventricular system normal in size and configuration. Mild generalized atrophy. No acute bony abnormality. Visualized paranasal sinuses and mastoid air cells are clear. IMPRESSION No acute intracranial abnormality. No significant change from 08/22/2016. Dictated by... Eliud Campos M.D. THIS IS AN ELECTRONICALLY VERIFIED REPORT Eliud Campos M.D. at 09/03/2016 8:12 AM [facility] A Service of [facility] RADIOLOGY TEXT RESULTS PATIENT: AMBAR WILSON LOCATION: C2[facility] 227-01 : 54 UNIT #: [id number] AGE: [address]: Hola Macedo MD SEX: M ORDER DR: TAMAR/michelle TD: 09/02/2016 16:46 JOB #: [id number] MEDICAL IMAGING REPORT Page 1 of 1 COPY
--- NOTE | ~2016-09-02 | DS ---
Unit #: [id number] #: [id number] Patient: AMBAR WILSON [id number] [address] [address] [id number] I MR#: [id number] NAME: AMBAR WILSON ROOM: 227 Age: 66 Sex: M Admission Date: 09/02/2016 : 1950 Discharge Date: 09/04/2016 Attending Physician: Hola Macedo M.D. Primary Care Physician: Edgardo Hodgson M.D. DISCHARGE SUMMARY ADDENDUM DATE OF 09/04/2016 APPROXIMATE TIME OF 0630 HISTORY OF PRESENT ILLNESS/HOSPITAL COURSE Please see discharge summary for details. While we were awaiting disposition per hospice services and possible transfer to inpatient hospice, patient was under routine comfort care measures. This morning, on 09/04/2016, the patient ultimately at approximately 0630. Please see previous discharge summary for details of hospital course. Dictated by... Ary Jain/sarah TD: 09/04/2016 10:43 JOB #: [id number] DISCHARGE SUMMARY Page 1 of 1 X Hola Macedo MD X DISCHARGE SUMMARY
--- NOTE | ~2016-09-02 | HP ---
Unit #: [id number] #: [id number] Patient: AMBAR WILSON [id number] [address] [address] [id number] I MR#: [id number] NAME: AMBAR WILSON. ROOM: 36397 Age: 66 Sex: M Admission Date: 09/02/2016 : 1950 Attending Physician: Hola Macedo M.D. Primary Care Physician: Edgardo Hodgson M.D. HISTORY AND PHYSICAL REASON FOR ADMISSION Weakness, acute kidney injury, hepatic encephalopathy, elevated INR. HISTORY OF PRESENT ILLNESS The patient is a 66-year-old male recently discharged from our hospital the late part of July 2016 secondary to stage IV cholangiocarcinoma, enterococcus UTI, acute kidney injury, chronic systolic heart failure as well as cirrhosis. Patient apparently was discharged to [facility] for ongoing care. While he was there he had profound weakness as well as increased lethargy over the past several days. Family members became concerned. He was brought to the ER for further evaluation. His hemoglobin was noted to be 9.7, glucose 68, ammonia was 129. His creatinine level was 3.0 from a baseline close to 1 to 1.5. At the present time there are numerous family members who are present at the bedside, including his who is also present at bedside. They are asking questions in regard to his overall long-term prognosis. PAST MEDICAL HISTORY 1. Stage IV cholangiocarcinoma, on chemotherapy. 2. Enterococcus UTI, recently treated. 3. Chronic kidney disease stage 3. 4. Chronic systolic heart failure. 5. Cirrhosis. 6. Paroxysmal atrial fibrillation. 7. Recent hypovolemic shock last admission. 8. Anemia, iron deficiency. 9. Hyperkalemia history in past. 10. Severe protein malnutrition. 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 12. Prior history of diverticular disease. 13. Prior history of colon resection. 14. Hypertension. 15. Rosacea. 16. Stage IV liver cancer as mentioned in #1. PAST SURGICAL HISTORY 1. Port placement. 2. Polyp removal. 3. Colon resection. Unit #: [id number] #: [id number] Patient: AMBAR WILSON SOCIAL HISTORY Patient quit smoking several months ago, quit drinking November of 2015, lives with his . DNR status noted. FAMILY HISTORY Mother coronary artery disease. ALLERGIES No known drug allergies. HOME MEDICATIONS Include Zofran, metoprolol, digoxin, Aldactone, lisinopril, Lasix, lidocaine, doxycycline, metronidazole, Eliquis, sotalol, Megace, Protonix. REVIEW OF SYSTEMS Twelve points otherwise negative except for those positive noted in the HPI. PHYSICAL EXAMINATION VITAL SIGNS: Temperature 94.7 on admission, pulse 69, respiratory rate 14, blood pressure 97/59. GENERAL APPEARANCE: The patient is a very jaundiced 66-year-old male who is very somnolent, difficult to arouse, confused at the present time. HEAD EXAM: Sclerae are icteric as noted. Atraumatic, normocephalic. NECK EXAM: Supple. Trachea midline. No JVD. No carotid bruit. CVS: S1, S2. No murmur heard. RESPIRATORY EXAM: Prolonged expiration noted. Increased work of breathing noted. GI/ABDOMEN: Soft, nontender, nondistended. EXTREMITY EXAM: Lower extremity edema 2+ is noted. SKIN EXAM: Warm, dry. Jaundice noted. NEUROLOGICAL EXAM: Patient alert and oriented x0. DIAGNOSTIC STUDIES LABORATORY: Initial laboratory studies show a BNP of 103; BMP showing sodium of 123, creatinine of 3.0, GFR of 21, ALT 158, AST 34, total bilirubin level 4.4, albumin 1.4. Lactic acid level 2.6. Ammonia level 129. INR 1.9. INITIAL ADMISSION DIAGNOSES 1. Hepatic encephalopathy. 2. Stage IV liver carcinoma. 3. Acute kidney injury. 4. Hyponatremia. 5. Aaztj-ml-tztjqpc systolic heart failure. 6. Jaundice/elevated bilirubin. 7. Severe protein malnutrition, albumin 1.4. 8. Hypertension. 9. Atrial fibrillation. 10. Prior history of alcohol abuse. 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 12. Prior history of colon resection. 13. Chronic anticoagulation with Eliquis. PLAN After a very lengthy discussion with patient's and family members present at bedside and a very thorough discussion in regard to the Unit #: [id number] #: [id number] Patient: AMBAR WILSON patient's long-term prognosis including goals of care, all family members request at the present time to allow the patient to be as comfortable as possible. They are requesting hospice services as well therefore his medications will apparently be discontinued. It was noted he did have an elevated lactic acid level with hyponatremia as well as hypotension. He did receive normal saline in light of his acute kidney injury. I did make the family aware that his condition may deteriorate over the next 24 to 48 hours and his clinical picture may be consistent with sepsis. They have stated very clearly that they do not wish for the patient, and he himself did not wish for, a prolonged hospital stay, recurrent hospital stays and they requested comfort care measures only. At this point in time we will consult hospice. Comfort care measures will be initiated in accordance with the patient's family members (1) Laboratory studies, vitals will be discontinued. Further hospital course to follow. Time spent in the coordination of this history and physical, chart review and management, discussion with family is greater than 55 minutes. Dictated by Ary Jain/william TD: 09/02/2016 17:00 JOB #: [id number] HISTORY AND PHYSICAL Page 1 of 1 X Hola Macedo MD HISTORY AND PHYSICAL
--- NOTE | ~2016-09-02 | DS ---
Unit #: [id number] #: [id number] Patient: AMBAR IWLSON [id number] [address] [address] [id number] I MR#: [id number] NAME: AMBAR WILSON. ROOM: 227 Age: 66 Sex: M Admission Date: 09/02/2016 : 1950 Discharge Date: Attending Physician: Hola Macedo M.D. Primary Care Physician: Edgardo Hodgson M.D. DISCHARGE SUMMARY Please see H and P for complete details in regards to assessment and plan. The patient was admitted for acute kidney injury, severe protein malnutrition, stage IV liver carcinoma as well as mental status decline, hepatic encephalopathy. Through this hospital course, the patient was placed on appropriate comfort care measures including morphine and Ativan. Hospice services have been consulted and they are currently evaluating the patient. Once appropriate disposition is achieved, either to inpatient hospice or hospice at home, patient will be transferred. Plans have been reviewed with the patient's in detail and she expresses understanding and agreement. FINAL DISCHARGE DIAGNOSES 1. Stage IV liver carcinoma. 2. Acute renal failure/hypotension on admission. 3. Hepatic encephalopathy. 4. Hyponatremia. 5. Acute on chronic systolic heart failure. 6. Elevated bilirubin. 7. Severe protein malnutrition, albumin 1.4. 8. Atrial fibrillation. 9. Prior history of alcohol abuse. 10. Alcoholic cardiomyopathy. DISCHARGE DISPOSITION Per the direction of hospice services. Dictated by... Ary Jain/sarah TD: 09/04/2016 06:34 JOB #: [id number] Unit #: [id number] #: [id number] Patient: AMBAR WILSON DISCHARGE SUMMARY Page 1 of 1 X Hola Macedo MD X DISCHARGE SUMMARY
--- NOTE | ~2016-09-02 | CR72 ---
[facility] A Service of [facility] RADIOLOGY TEXT RESULTS PATIENT: AMBAR WILSON LOCATION: [facility] : 54 UNIT #: [id number] AGE: [address]: Hola Macedo MD SEX: M ORDER DR: [id number] [facility] [address] [facility]. [place], [place] [address] [id number] E MR#: [id number] Acc #: [id number] NAME: AMBAR WILSON. : 1950 SEX: M STUDY DATE/TIME: 09/02/2016 11:58 UNIT: [facility] ROOM: STUDY DESCRIPTION: CR Chest Single View Portable Attending Physician: Noemy Soto M.D. Ordering Physician: Noemy Soto M.D. Primary Care Physician: Edgardo Hodgson M.D. MEDICAL IMAGING REPORT This report is preliminary unless electronic signature is present EXAM Portable chest 09/02/2016. HISTORY Shortness of air beginning today. COMPARISON Chest 08/22/2016. FINDINGS Frontal chest demonstrates clear lungs. No pleural effusion or pneumothorax. Heart size and mediastinum are normal. Pulmonary vasculature normal. Right-sided Port-A-Cath. IMPRESSION No acute cardiopulmonary findings. Dictated by... Eliud Campos M.D. THIS IS AN ELECTRONICALLY VERIFIED REPORT Eliud Campos M.D. at 09/03/2016 8:12 AM TAMAR/michelle TD: 09/02/2016 16:22 JOB #: [id number] MEDICAL IMAGING REPORT Page 1 of 1 COPY
--- NOTE | ~2016-09-02 | EKG ---
PATIENT: AMBAR WILSON UNIT #: [id number] Ventricular Rate: 68 BPM Atrial Rate: 68 BPM P-R Interval: 192 ms QRS Duration: 104 ms Q-T Interval: 424 ms QTC Calculation(Bezet): 450 ms P Aurora: 66 degrees Calculated R Aurora: 20 degrees Calculated T Aurora: 66 degrees Diagnosis Line: Normal sinus rhythm with sinus arrhythmia Diagnosis Line: Low voltage QRS Diagnosis Line: Borderline ECG Diagnosis Line: When compared with ECG of 22-AUG-2016 10:16, Diagnosis Line: Nonspecific T wave abnormality no longer evident Diagnosis Line: in Anterolateral leads Diagnosis Line: QT has lengthened Diagnosis Line: Confirmed by DEANNA PAZ MD ([id number]) on 09/03/2016 Diagnosis Line: 8:39:40 PM INTERPRETING MD: JACKSON WHITTAKER
[2016-09-02 12:10] LABS: URINE SOURCE CLEAN CATCH
[2016-09-02 12:19] LABS: URINE APPEARANCE CLEAR; URINE BLOOD NEG (NEG); URINE COLOR DK YELLOW; URINE GLUCOSE NEG (NEG); URINE KETONE NEG (NEG); URINE LEUKOCYTE ESTERASE TRACE (NEG); URINE NITRATE NEG (NEG); URINE PROTEIN NEG (NEG); URINE SPECIFIC GRAVITY 1.013 (1.003-1.035)
[2016-09-02 12:21] LABS: URBCS1 AUWI 0-2 /[HPF] (0-2); URINE BACTERIA AUWI NEG (NEGATIVE); URINE SQUAMOUS EPITHELIAL CELL NONE SEEN /[HPF]; UWBCS1 AUWI 0-2 (0-5)
[2016-09-02 12:21] LABS: BASOPHIL# 0.1 X10e3 (0-0.3); BASOPHIL% 0.5 % (0-2.5); EOSINOPHIL# 0.1 X10e3 (0-0.7); EOSINOPHIL% 0.7 % (0.0-7.0); HEMATOCRIT 29.5 % (38.0-50.0); HEMOGLOBIN 9.8 gm/dL (13.0-16.0); LYMPHOCYTE# 2.3 X10e3 (1.0-3.5); LYMPHOCYTE% 16.9 % (17.0-45.0); MEAN CELL VOLUME 94.3 FL (83-96); MEAN CORPUSCULAR HEMOGLOBIN 31.4 PG (28-34); MEAN CORPUSCULAR HGB CONC 33.3 g/dL (30-36); MEAN PLATELET VOLUME 10.1 FL (6.5-11.5); MONOCYTE# 1.4 X10e3 (0-1.0); NEUTROPHIL# 9.9 X10e3 (1.5-7.1); NEUTROPHIL% 71.9 % (40-75); PLATELET COUNT 105 X10e3 (140-420); RED BLOOD COUNT 3.12 X10e (3.90-5.60); RED CELL DISTRIBUTION WIDTH 18.3 % (11.0-15.5); WHITE BLOOD COUNT 13.8 X10e3 (4.0-10.5)
[2016-09-02 12:22] LABS: DIFF IND NO
[2016-09-02 12:22] LABS: CULTURE INDICATED? NO; URINE BILIRUBIN NEG (NEG)
[2016-09-02 12:27] LABS: POC - CKMB <1.0 ng/mL (0.0-7.9); POC - TROPONIN <0.05 ng/mL (<=0.05)
[2016-09-02 12:31] LABS: INR 1.9; PROTHROMBIN TIME (PATIENT) 20.1 SECONDS (9.6-11.5)
[2016-09-02 12:42] LABS: ALBUMIN SERUM 1.4 g/dL (3.5-5.0); BILIRUBIN, DIRECT 2.4 mg/dL (0.0-0.2); BILIRUBIN,TOTAL 4.4 mg/dL (0.2-2.0); BUN/CREATININE RATIO 22.66; PROTEIN TOTAL SERUM 5.3 g/dL (6.0-8.3)
[2016-09-02 12:45] LABS: POTASSIUM 5.5 mmol/L (3.5-5.1)
[~2016-09-02 13:43] MED LIST changes: +ALDACTONE25 MG PO; +FUROSEMIDE40 MG PO; +LIDOPRIL XR 2.1 EACH; +LISINOPRIL5 MG PO; +MEGACE ORA40 MG/ML S PO; +METOPROLOL TART25 MG PO; +METRONIDAZOLE 045 GM EXT; +PROTONIX PO; +SOTALOL AF80 M1 PO; +ZOFRAN ODT4 M1 PO
[2016-09-02 14:10] LABS: POC - CKMB <1.0 ng/mL (0.0-7.9); POC - TROPONIN <0.05 ng/mL (<=0.05)
== END 2016-09-04 06:30 | disposition expired | DRG 871 ==
LOC: CED 13:43 → CEDOF 16:00 → C2A 17:19
PROVIDERS: Emergency Medicine
DX: A41.9 Sepsis, unspecified organism (principal); E43 Unspecified severe protein-calorie malnutrition; I50.23 Acute on chronic systolic (congestive) heart failure; I95.9 Hypotension, unspecified; C22.1 Intrahepatic bile duct carcinoma; N17.9 Acute kidney failure, unspecified; I42.6 Alcoholic cardiomyopathy; N18.3 Chronic kidney disease, stage 3 (moderate); I13.0 Hypertensive heart and chronic kidney disease with heart failure and stage 1 through stage 4 chronic kidney disease, or unspecified chronic kidney disease; E87.1 Hypo-osmolality and hyponatremia; I11.0 Hypertensive heart disease with heart failure; I48.0 Paroxysmal atrial fibrillation; R65.20 Severe sepsis without septic shock; K72.90 Hepatic failure, unspecified without coma; F10.21 Alcohol dependence, in remission; K29.20 Alcoholic gastritis without bleeding; Z51.5 Encounter for palliative care; Z86.010 Personal history of colon polyps; Z82.49 Family history of ischemic heart disease and other diseases of the circulatory system; Z79.01 Long term (current) use of anticoagulants
CPT/HCPCS: 36415; 70450; 71010; 80048; 80076; 81003; 82140; 82553; 82947; 83605; 83880; 84484; 85025; 85610; 87040; 93005; 94760; 96361; 96374; 99285; J2270